=== PATIENT | female | born 1930 | race Caucasian/White ===

== ENCOUNTER 2017-09-12 16:15 | Inpatient (IN) | payer MEDICARE, OTHER ==
[2017-09-12 17:19] LABS: #Basophils 0.1 thou/uL (0.0-0.2); #Eosinphils 0.1 thou/uL (0.0-0.7); #Lymphocytes 2.4 thou/uL (1.20-3.40); #Neutrophils 4.9 thou/uL (1.40-6.50); %Basophils 0.7 % (0.0-1.0); %Lymphocytes 28.1 % (21.0-51.0); %Monocytes 11.5 % (0.0-10.0); Hematocrit 35.2 % (36.0-47.0); Mean Platelet Volume 7.4 fL (7.4-10.4); Red Blood Cell (RBC) Count 4.31 mill/uL (4.20-5.40); White Blood Cell (WBC) Count 8.4 thou/uL (4.8-10.8)
[2017-09-12 17:26] LABS: PTT 40.7 SEC (22.9-36.1)
[2017-09-12 17:28] LABS: Prothrombin Time 13.9 SEC (12.0-14.7)
[2017-09-12 17:37] LABS: ALT (SGPT) 14 U/L (8-55); AST (SGOT) 18 U/L (5-34); Alkaline Phosphatase 107 U/L (40-150); Anion Gap 13 mmol/L (10-20); BUN (Urea Nitrogen) 20 mg/dL (9.8-20.1); Bilirubin, Total 0.4 mg/dL (0.2-1.2); CK (CPK) 46 U/L (29-168); Calc. Creatinine Clearance 0 mL/min (70-130); Calcium 9.4 mg/dL (7.8-10.44); Carbon Dioxide 25 mmol/L (23-31); Chloride 103 mmol/L (98-107); Estimated GFR-MDRD 73; Globulin 3.7 g/dL (2.4-3.5); Lipase 18 U/L (8-78); Protein, Total 7.6 g/dL (6.0-8.3)
[2017-09-12 17:39] LABS: Troponin I 0.027 ng/mL (< 0.028)
--- NOTE | 2017-09-12 17:46 | RAD ---
PORTABLE CHEST: 09/12/17 HISTORY: Shortness of breath. COMPARISON: 03/19/13. Cardiomegaly. Mild vascular engorgement. Some interstitial prominence may represent mild interstitial edema. No confluent consolidation or alveolar process. Mild flattening of diaphragms. IMPRESSION: Cardiomegaly and evidence of mild vascular engorgement. POS: [facility]
[2017-09-12] MEDS ORDERED: Furosemide 40 MG/4 ML VIAL ONE (17:50)
[2017-09-12] MEDS ORDERED: Acetaminophen 325 MG TAB PO PRN (20:55)
[2017-09-12] MEDS ORDERED: Ondansetron HCl/PF 4 MG/2 ML Vial IVP PRN (20:55)
[2017-09-12] MEDS ORDERED: Ondansetron ODT 4 MG TAB SL PRN (20:55)
[2017-09-12 21:00] LABS: Troponin I 0.035 ng/mL (< 0.028)
[2017-09-12] MEDS ORDERED: Insulin Regular 300 UNITS/3 ML VIAL SC PRN (21:33)
[2017-09-12] MEDS ORDERED: Dextrose 50% Abboject 50 ML SYRINGE SLOW IVP PRN (21:33)
[2017-09-12] MEDS ORDERED: Dextrose 5% in Water 1,000 ML IV PRN (21:33)
[2017-09-12] MEDS ORDERED: HumaLOG 300 UNITS/3 ML VIAL SC PRN (21:33)
[2017-09-12] MEDS ORDERED: Atorvastatin Calcium 40 MG TAB PO SCH (22:00)
[2017-09-12] MEDS ORDERED: Famotidine 20 MG TAB PO SCH (22:00)
[2017-09-12] MEDS ORDERED: Furosemide 40 MG/4 ML VIAL SLOW IVP SCH (22:00)
[2017-09-12] MEDS: Atorvastatin Calcium 40 MG TAB PO SCH (22:28)
[2017-09-12] MEDS: Famotidine 20 MG TAB PO SCH (22:29)
[2017-09-12 22:43] VITALS: BMI 31.6
[2017-09-12 22:45] LABS: Magnesium 2.4 mg/dL (1.6-2.6); Phosphorus 2.8 mg/dL (2.3-4.7)
[2017-09-12 23:37] LABS: Troponin I 0.038 ng/mL (< 0.028)
--- NOTE | 2017-09-13 01:30 | HP ---
DATE OF ADMISSION: 09/12/2017 ATTENDING: Marifer Dominguez D.O. RESIDENT: Eliot Lozano D.O. Dr. Lozano's H&P reviewed and case discussed. Pertinent portions of the history and physical were repeated by myself. I agree with the assessment and plan with the following addendum: Ms. Finn is an 87-year-old female with a past medical history of paroxysmal atrial fibrillation, hypertension, diabetes, hyperlipidemia, depression, who was sent to the ER by home health because of worsening heart rate and blood pressure. On arrival, the patient noted that she had dyspnea and lower extremity edema, which is new. She had a BNP of 589, which is a new finding. Her troponins have been indeterminate at 0.035 and 0.038, otherwise electrolytes have been normal. Her creatinine is 0.75. She has a mild microcytic anemia. The patient was admitted with concern for new onset congestive heart failure. Her chest x-ray was consistent with cardiomegaly and pulmonary vascular congestion. EKG shows atrial fibrillation without evidence of ischemia. She has been given a dose of Lasix and is diuresing appropriately. We are monitoring I's and O's and fluid restricting her. An echo has been ordered to be read by Cardiology. Cardiology has been consulted given her new onset congestive heart failure as she may require cardiac catheterization. We will await their recommendations. She is currently on lisinopril and atenolol. We will change her atenolol to Coreg. She is rate controlled with a heart rate of 89, and has a CHADSVASC of 5; will discuss anticoagulation with PCP, patient, and family tomorrow. MYRON
[2017-09-13 03:52] LABS: Troponin I 0.035 ng/mL (< 0.028)
[2017-09-13 03:55] LABS: Hematocrit 35.7 % (36.0-47.0); Mean Platelet Volume 7.4 fL (7.4-10.4); Neutrophil 70 % (42-75); Red Blood Cell (RBC) Count 4.34 mill/uL (4.20-5.40); White Blood Cell (WBC) Count 9.6 thou/uL (4.8-10.8)
[2017-09-13 03:58] LABS: Calcium 9.4 mg/dL (7.8-10.44)
[2017-09-13 04:00] LABS: Carbon Dioxide 28 mmol/L (23-31)
[2017-09-13 04:02] LABS: Calc. Creatinine Clearance 69 mL/min (70-130); Estimated GFR-MDRD 76
[2017-09-13 04:03] LABS: BUN (Urea Nitrogen) 14 mg/dL (9.8-20.1)
[2017-09-13 05:13] LABS: Chloride 101 mmol/L (98-107)
[2017-09-13 05:16] LABS: Anion Gap 14 mmol/L (10-20)
[2017-09-13] MEDS: Levothyroxine Sodium 50 MCG TAB PO SCH (05:21)
[2017-09-13] MEDS: Furosemide 40 MG/4 ML VIAL SLOW IVP SCH ×2 (05:21→13:19)
--- NOTE | 2017-09-13 05:55 | HP-2 ---
DATE OF ADMISSION: 09/12/2017 CODE STATUS: DNR, discussed extensively with the patient and family present. The patient is aware a nd understands what this means and has discussed this with family prior to her admission. PRIMARY CARE PHYSICIAN: Dr. Sohail Fernandez. ATTENDING PHYSICIAN: Marifer Dominguez D.O. RESIDENT: Cuca Guillory D.O. HISTORIAN: Patient. CHIEF COMPLAINT: Increased shortness of breath. HISTORY OF PRESENT ILLNESS: This is a pleasant 87-year-old white female with past medical history of atrial fibrillation, rate controlled, presenting with worsening of shortness of breath over the past 2-3 months; however, this morning, her shortness of breath got progressively worse, which caused her to come to the ER. Now sleeping in the upright position in the bed and has noticed that she has mor e fatigue and dyspnea with exertion and she is unable to go to the grocery store or a walk from her h ouse to the car and is limiting her daily activities of living. Denies any chest pain, nausea, vomit ing, fever, chills, diaphoresis, abdominal pain, weight changes. She does note increased lower extre mity swelling and abdominal fullness. She was noted to be hypoxic in the emergency room and started on oxygen at that time and was noted to have elevation in her BNP in the 500s. Therefore, she was ad mitted for an acute exacerbation of CHF, new onset. In the emergency room, she received Lasix 40 mg IV push. PAST MEDICAL HISTORY: 1. Atrial fibrillation, rate controlled. 2. Hypothyroidism. 3. Chronic anxiety. 4. Chronic obstructive pulmonary disease. 5. Hyperlipidemia. 6. Hypertension. 7. Diabetes mellitus type 2. PAST SURGICAL HISTORY: 1. Appendectomy. 2. Hysterectomy. 3. Skin cancer removals. MEDICATIONS: 1. Potassium chloride ER 20 mEq p.o. b.i.d. 2. Atenolol 50 mg b.i.d. 3. Clonidine 0.2 mg p.o. b.i.d. 4. Aspirin 81 mg p.o. daily. 5. Escitalopram 10 mg p.o. daily. 6. Synthroid 50 mcg p.o. daily. 7. Amlodipine 10 mg p.o. daily. 8. Pravachol 20 mg p.o. daily. 9. Metformin extended release 750 mg p.o. daily. 10. Hydrochlorothiazide 25 mg p.o. at bedtime. 11. Lisinopril 20 mg p.o. q.a.m. ALLERGIES: No known drug allergies. FAMILY HISTORY: Father had brain cancer. SOCIAL HISTORY: She lives at [place] and is retired. She does have a history of tobacco abuse in the past; however, none currently. Denies any alcohol or drug use. She does have 8 children. REVIEW OF SYSTEMS: Positive for shortness of breath, exercise intolerance, palpitations, edema, paro xysmal nocturnal dyspnea, orthopnea, generalized weakness and chronic controlled anxiety as well as c hronic constipation. Otherwise, 12-point review of systems negative other than mentioned above. PHYSICAL EXAMINATION: VITAL SIGNS: Blood pressure 132/99, pulse 93, respirations 20, T-max 97.6, pulse ox 95% on 2 liters. Current weight is 78 kilograms estimated. GENERAL: Alert, oriented x4, no acute distress. She is obese, appropriately interactive. EYES: Pupils equal and reactive to light. Extraocular muscles intact. Conjunctivae within normal l imits. ENT: Tympanic membranes pearly gzuman without bulging or erythema. Nasal mucosa within normal limits. Oropharynx within normal limits. NECK: Supple, no lymphadenopathy, no bruit. CARDIOVASCULAR: Irregularly irregular. Radial pulses +2, pedal pulses +2. RESPIRATIONS: Within normal limits. No retractions. Clear to auscultation bilaterally. SKIN: Warm and dry, no cyanosis, no lesions. ABDOMEN: Soft, nontender to palpation. No mass or distention. EXTREMITIES: No cyanosis, +2 pitting edema bilaterally in lower extremities. MUSCULOSKELETAL: Structure within normal limits. Tone within normal limits. NEUROLOGIC: No focal deficits. Cranial nerves II through XII intact. GCS of 15. PSYCHIATRIC: Appropriate. LABORATORY DATA: CBC: WBC 8.4, hemoglobin 11.5, hematocrit 35.2, platelets 304. MCV 81.7. CMP: S odium 137, potassium 3.5, chloride 103, bicarbonate 25, BUN 20, creatinine 0.75, glucose 89, GFR 73, calcium 9.4, total bilirubin 0.4, total protein 7.6, albumin 3.4, AST 18, ALT 14, alkaline phosphatas e 107. PT 13.9, PTT 40.7, INR 1.1. Lipase 18. BNP 589.1. CK 46, CK-MB 1.6, troponin I 0.027, trended up to 0.038. EKG: Atrial fibrillation, whic h is rate controlled. Chest x-ray, cardiomegaly with vascular engorgement. ASSESSMENT AND PLAN: This is an 87-year-old female with past medical history of atrial fibrillation, controlled with beta alon, presents with increased shortness of breath. 1. Acute and new onset congestive heart failure. We will order an echo. Consult Cardiology in the morning. Cardiac enzymes x3, Lasix, potassium. Admit to telemetry. Monitor ins and outs and mainta in fluid restriction 1800 mL per hour. We will check a magnesium and phosphorous 2. Atrial fibrillation, rate controlled. We will continue her home medications, aspirin 81 mg, eleonora nopril and hydrochlorothiazide; however, we will change from atenolol to Coreg and continue to titrat e as appropriate. 3. Hypothyroidism. Continue home medications, check a TSH. 4. Chronic anxiety. We will continue home medications. 5. Chronic obstructive pulmonary disease. DuoNeb. 6. Hyperlipidemia. We will change from pravastatin to Atorvastatin 80 mg. 7. Hypertension. We will continue home medications. 8. Diabetes mellitus type 2, home metformin and check hemoglobin A1c, Accu-Chek and hypoglycemic pro tocol. 9. Deep venous thrombosis prophylaxis. Lovenox. 10. Gastrointestinal prophylaxis. Protonix. 11. Code status is DNR. 12. Hypoxia, oxygen p.r.n. and DuoNeb p.r.n. History and physical exam as well as management was discussed with Dr. Dominguez who agrees with the ab e assessment and plan.
[2017-09-13] MEDS ORDERED: Potassium Chloride 20 MEQ TAB PO SCH (08:00)
[2017-09-13] MEDS ORDERED: Carvedilol 6.25 MG TAB PO SCH (08:00)
[2017-09-13] MEDS: Lisinopril 20 MG TAB PO SCH (08:52)
[2017-09-13] MEDS: Enoxaparin Sodium 40 MG/0.4 ML SYRINGE SC SCH (08:52)
[2017-09-13] MEDS: Escitalopram Oxalate 10 mg Tablet PO SCH (08:52)
[2017-09-13] MEDS ORDERED: Atenolol 50 MG TAB PO SCH (09:00)
[2017-09-13] MEDS ORDERED: Enoxaparin Sodium 40 MG/0.4 ML SYRINGE SC SCH (09:00)
--- NOTE | 2017-09-13 13:42 | PDOC.FM ---
- Subjective Subjective: Pt endorses worsening shortness of breath over the past several months as well as bilateral leg swelling. States she is breathing fine this morning on 2L O2. No other complaints this morning. - Objective Vital Signs & Weight: Vital Signs (12 hours) Temp Pulse Resp BP BP BP BP 09/13/17 13:13 97.4 F L 95 17 144/91 H 09/13/17 08:52 134/88 09/13/17 08:00 98.1 F 97 18 134/88 09/13/17 05:30 156/82 H 142/74 H 153/98 H 09/13/17 04:00 98.1 F 96 18 155/75 H Pulse Ox 09/13/17 13:13 97 09/13/17 08:52 09/13/17 08:00 95 09/13/17 05:30 09/13/17 04:00 94 L Weight Weight 78.613 kg I&O: 09/12/17 09/13/17 09/14/17 06:59 06:59 06:59 Intake Total 120 Output Total 3550 Balance -3430 Result Diagrams: 09/13/17 03:11 09/13/17 03:11 <TracePaty - Last Filed: 09/13/17 13:40> - Objective Vital Signs & Weight: Vital Signs (12 hours) Temp Pulse Pulse Pulse Resp BP BP 09/13/17 16:58 134/88 09/13/17 15:53 98.0 F 112 H 22 H 09/13/17 13:13 97.4 F L 95 17 09/13/17 10:51 117 H 95 131/85 09/13/17 08:52 134/88 09/13/17 08:00 98.1 F 97 18 BP BP Pulse Ox Pulse Ox Pulse Ox 09/13/17 16:58 09/13/17 15:53 122/94 H 96 09/13/17 13:13 144/91 H 97 09/13/17 10:51 142/97 H 96 90 L 09/13/17 08:52 09/13/17 08:00 134/88 95 Weight Weight 78.613 kg I&O: 09/12/17 09/13/17 09/14/17 06:59 06:59 06:59 Intake Total 120 920 Output Total 3550 2450 Balance -3430 -1530 Result Diagrams: 09/13/17 03:11 09/13/17 03:11 <RadhaSanjuanita - Last Filed: 09/13/17 19:35> Phys Exam - Physical Examination HEENT: PERRLA, moist MMs Respiratory: no wheezing, no rales, clear to auscultation bilateral irregularly irregular Gastrointestinal: soft, non-tender, no distention Musculoskeletal: edema present 1+ bilateral lower extremities Neurological: non-focal, normal sensation Psychiatric: normal affect, A&O x 3 <Paty Woodward - Last Filed: 09/13/17 13:40> Dx/Plan (1) CHF exacerbation Code(s): I50.9 - HEART FAILURE, UNSPECIFIED Status: Acute (2) Atrial fibrillation Code(s): I48.91 - UNSPECIFIED ATRIAL FIBRILLATION Status: Acute (3) Hypothyroidism Code(s): E03.9 - HYPOTHYROIDISM, UNSPECIFIED Status: Acute (4) Anxiety Code(s): F41.9 - ANXIETY DISORDER, UNSPECIFIED Status: Acute (5) COPD (chronic obstructive pulmonary disease) Status: Acute (6) HLD (hyperlipidemia) Code(s): E78.5 - HYPERLIPIDEMIA, UNSPECIFIED Status: Acute (7) HTN (hypertension) Code(s): I10 - ESSENTIAL (PRIMARY) HYPERTENSION Status: Acute (8) diabetes mellitus type 2 Status: Acute - Plan Plan: 87 yo f with pmhx of htn, hld, and atrial fibrillation presents with 2-3 mo hx of worsening shortness of breath, admitted for new onset CHF exacerbation. 1.) CHF exacerbation, acute, new onset- Cards consulted, will followup on recs Coreg 6.5 BID, Lisinopril 10mg, Lasix 40mg IV BID O2 prn sats >85% 2.) Atrial Fibrillation-on Coreg Has bled score 1.8% and Chadsvasc 8.5% Recommend Xarelto 15mg BID; will [place] pt of risk and benefits and discuss with cardiology 3.)HLD- will restart home meds 4.)HTN- will restart home meds 5.)Hypothyroidism- Will restart home meds 6.)COPD- will restart home meds 7.)Anxiety- will restart home meds <Paty Woodward - Last Filed: 09/13/17 13:40> Attending Addendum - Attending Addendum I personally evaluated the patient and discussed the management with Dr. Guzman. I agree with the History, Examination, Assessment and Plan documented above with any addition or exceptions noted below. Patient with new onset CHF. Echo is pending. Patient is diuresing with lasix. Cardiology will be consulted. Patient will likely need to be started on xarelto or eliquis for anticoagulation due to atrial fibrillation. <Sanjuanita Garcia - Last Filed: 09/13/17 19:35>
--- NOTE | 2017-09-13 16:20 | CON ---
REASON FOR CONSULTATION: Shortness of breath and atrial fibrillation. PRIMARY PROVIDER: Dr. Sohail Fernandez. HISTORY OF PRESENT ILLNESS: Ms. Finn is an 87-year-old woman who has not been seen or evaluated by Cardiology in the past. She has a previous history of atrial fibrillation. She recently present ed with shortness of breath, fatigue, weakness, and lower extremity edema. She states her shortness of breath has markedly improved in addition to lower extremity edema. She states she has not been se en or evaluated by Cardiology in the past. No chest pain or pressure noted. No other associated jake liorating or exacerbating factors present. PAST MEDICAL HISTORY: Atrial fibrillation, hypothyroidism, COPD, hyperlipidemia, hypertension, and d iabetes mellitus. CURRENT MEDICATIONS: Mirtazapine, atenolol, clonidine, aspirin, Synthroid, amlodipine, Pravachol, me tformin, and lisinopril. ALLERGIES: None. SOCIAL HISTORY: No current tobacco or alcohol use. REVIEW OF SYSTEMS: As above, otherwise 11-point system negative. PHYSICAL EXAMINATION: GENERAL: Patient is a pleasant female who is in no acute distress. The patient appears her stated a ge. VITAL SIGNS: Blood pressure 144/91, pulse 95, temperature 97.4. NEUROLOGIC: The patient is alert and oriented times 3 with no focal neurologic deficits. HEENT: Sclerae without icterus. Mouth has moist mucous membranes with normal pallor. NECK: No JVD. Carotid upstroke brisk. No bruits bilaterally. LUNGS: Clear to auscultation with unlabored respirations. BACK: No scoliosis or kyphosis. CARDIAC: Irregularly irregular. No significant rubs, murmurs, thrills, or gallops noted throughout the precordium. PMI is not displa rick. There is no parasternal heave. ABDOMEN: Soft, nontender, nondistended. No peritoneal signs present. No hepatosplenomegaly. No abnormal striae. EXTREMITIES: 2+ femoral and 2+ dorsalis pedis pulses. No cyanosis, clubbing, or edema. SKIN: No gross abnormalities. PERTINENT LABORATORY DATA: Hemoglobin 11.4, creatinine 0.73, platelet count 293. IMPRESSION: 1. Atrial fibrillation. 2. Shortness of breath. 3. Lower extremity edema. RECOMMENDATIONS: From a CV standpoint, Ms. Finn appears stable. Her current heart rate is 95. From a rate control standpoint, she is on carvedilol 6.25 one p.o. b.i.d. She is not on IV rate cont rol. May consider adding digoxin versus increasing carvedilol for better rate control if needed. Wi ll also discuss novel oral anticoagulation agents with Quinton Aakash.
[2017-09-13] MEDS: Carvedilol 6.25 MG TAB PO SCH (16:58)
[2017-09-13] MEDS: Hydrochlorothiazide 25 MG TAB PO SCH (20:48)
[2017-09-13] MEDS: Atorvastatin Calcium 40 MG TAB PO SCH (20:48)
[2017-09-13] MEDS: Famotidine 20 MG TAB PO SCH (20:48)
[2017-09-13] MEDS: Acetaminophen 325 MG TAB PO PRN (20:49)
[2017-09-13] MEDS: Milk Of Magnesia 30 ML UDCUP PO PRN (20:49)
[2017-09-14 05:40] LABS: #Eosinphils 0.1 thou/uL (0.0-0.7); #Lymphocytes 1.9 thou/uL (1.20-3.40); #Monocytes 1.1 thou/uL (0.11-0.59); #Neutrophils 5.3 thou/uL (1.40-6.50); %Basophils 0.5 % (0.0-1.0); %Eosinophils 1.1 % (0.0-10.0); Hematocrit 42.3 % (36.0-47.0); Mean Platelet Volume 7.8 fL (7.4-10.4); Red Blood Cell (RBC) Count 5.12 mill/uL (4.20-5.40); White Blood Cell (WBC) Count 8.4 thou/uL (4.8-10.8)
[2017-09-14] MEDS: Furosemide 40 MG/4 ML VIAL SLOW IVP SCH (05:40)
[2017-09-14] MEDS: Levothyroxine Sodium 50 MCG TAB PO SCH (05:40)
[2017-09-14 06:13] LABS: Anion Gap 13 mmol/L (10-20); BUN (Urea Nitrogen) 18 mg/dL (9.8-20.1); Calc. Creatinine Clearance 41 mL/min (70-130); Calcium 9.9 mg/dL (7.8-10.44); Carbon Dioxide 32 mmol/L (23-31); Chloride 99 mmol/L (98-107); Estimated GFR-MDRD 47
[2017-09-14] MEDS: Milk Of Magnesia 30 ML UDCUP PO PRN (06:45)
[2017-09-14] MEDS ORDERED: Bisacodyl 10 MG SUPP PR PRN (06:57)
[2017-09-14] MEDS: Sodium Chloride 0.9% 500 ML IV SCH ×7 (07:48→13:25)
[2017-09-14] MEDS: Escitalopram Oxalate 10 mg Tablet PO SCH (07:50)
[2017-09-14] MEDS: Enoxaparin Sodium 40 MG/0.4 ML SYRINGE SC SCH (07:50)
[2017-09-14] MEDS: Docusate 100 MG CAP PO SCH ×2 (07:51→20:44)
[2017-09-14] MEDS: Carvedilol 6.25 MG TAB PO SCH (07:51)
[2017-09-14] MEDS: Metamucil PACK PO SCH (08:27)
--- NOTE | 2017-09-14 11:06 | PDOC.FM ---
- Subjective Subjective: Pt feeling well this morning aside from constipation. Denies any palpitations, shortness of breath, chest pain or other symptoms. Able to ambulate to restroom without SOB. No longer requiring O2. - Objective MAR Reviewed: Yes Vital Signs & Weight: Vital Signs (12 hours) Temp Pulse Resp BP BP Pulse Ox 09/14/17 07:51 124/68 09/14/17 07:45 97.9 F 103 H 18 91 L 09/14/17 07:44 97.9 F 103 H 18 124/68 91 L 09/14/17 07:35 99 09/14/17 04:00 98.0 F 110 H 20 124/81 96 09/14/17 00:00 18 Weight Weight 71.486 kg I&O: 09/13/17 09/14/17 09/15/17 06:59 06:59 06:59 Intake Total 120 1054 Output Total 0505 2700 Balance -8723 -0506 Result Diagrams: 09/14/17 05:17 09/14/17 05:17 EKG Reviewed by me: Yes (rate controlled Afib on tele monitor) <Elissa Null - Last Filed: 09/14/17 11:18> - Objective Vital Signs & Weight: Vital Signs (12 hours) Temp Pulse Resp BP BP BP BP 09/14/17 11:32 95/70 88/51 L 137/79 09/14/17 07:51 124/68 09/14/17 07:45 97.9 F 103 H 18 09/14/17 07:44 97.9 F 103 H 18 124/68 09/14/17 07:35 09/14/17 04:00 98.0 F 110 H 20 124/81 09/14/17 00:00 18 Pulse Ox 09/14/17 11:32 09/14/17 07:51 09/14/17 07:45 91 L 09/14/17 07:44 91 L 09/14/17 07:35 99 09/14/17 04:00 96 09/14/17 00:00 Weight Weight 71.486 kg I&O: 09/13/17 09/14/17 09/15/17 06:59 06:59 06:59 Intake Total 120 1054 Output Total 3550 2700 Balance -0963 -8971 Result Diagrams: 09/14/17 05:17 09/14/17 05:17 <Sanjuanita Garcia - Last Filed: 09/14/17 11:41> Phys Exam - Physical Examination Constitutional: NAD HEENT: oral pharynx no lesions Neck: no JVD, supple Respiratory: no wheezing, clear to auscultation bilateral Cardiovascular: no significant murmur, irregular Gastrointestinal: soft, non-tender, no distention Musculoskeletal: no edema Neurological: non-focal Psychiatric: normal affect, A&O x 3 Skin: no rash, normal turgor <Elissa Null - Last Filed: 09/14/17 11:18> Dx/Plan (1) Diastolic CHF, acute Code(s): I50.31 - ACUTE DIASTOLIC (CONGESTIVE) HEART FAILURE Status: Acute (2) Atrial fibrillation Code(s): I48.91 - UNSPECIFIED ATRIAL FIBRILLATION Status: Acute QualifierTitle: Atrial fibrillation type: persistent Qualified Code(s): I48.1 - Persistent atrial fibrillation (3) COPD (chronic obstructive pulmonary disease) Status: Chronic QualifierTitle: COPD type: unspecified COPD Qualified Code(s): J44.9 - Chronic obstructive pulmonary disease, unspecified (4) HLD (hyperlipidemia) Code(s): E78.5 - HYPERLIPIDEMIA, UNSPECIFIED Status: Chronic QualifierTitle: Hyperlipidemia type: unspecified Qualified Code(s): E78.5 - Hyperlipidemia, unspecified (5) HTN (hypertension) Code(s): I10 - ESSENTIAL (PRIMARY) HYPERTENSION Status: Chronic QualifierTitle: Hypertension type: essential hypertension Qualified Code( s): I10 - Essential (primary) hypertension (6) Hypothyroidism Code(s): E03.9 - HYPOTHYROIDISM, UNSPECIFIED Status: Chronic (7) diabetes mellitus type 2 Status: Chronic (8) Anxiety Code(s): F41.9 - ANXIETY DISORDER, UNSPECIFIED Status: Chronic (9) Constipation Code(s): K59.00 - CONSTIPATION, UNSPECIFIED Status: Acute QualifierTitle: Constipation type: unspecified constipation type Qualified Code(s): K59.00 - Constipation, unspecified - Plan Plan: 87 yo f with pmhx of htn, hld who presents with 2-3 mo hx of shortness of breath with ambulation, found to be in Afib & admitted for new onset CHF-- 1) Acute diastolic CHF (new onset)- - echo showed preserved EF% but unable to assess diastolic dysfxn due to Afib - cards consulted and agree with plan - excessive diuresis. hold am nephrotoxins and decrease to po am dose. recheck renal fxn after decrease in diuretics. - no longer on supplemental o2-- check O2 with ambulation to assure no needed oxygen 2) Atrial Fibrillation, persistent & rate- controlled- - HAS BLED = 2, [id number] = 6. discussed need for NOAC and pt & family agrees to treatment - start Xarelto 20mg QD 3)HLD- home meds 4)HTN- home meds 5.)Hypothyroidism- home meds 6) Constipation- bowel regimen started <Paty Woodward - Last Filed: 09/13/17 13:4 <Elissa Null - Last Filed: 09/14/17 11:18> Attending Addendum - Attending Addendum I personally evaluated the patient and discussed the management with Dr. Null. I agree with the History, Examination, Assessment and Plan documented above with any addition or exceptions noted below. The patient's breathing and edema are improved. Pt with YAO this morning. Small amount of IV fluids given this am. Will recheck creatinine this afternoon. She may be able to discharge if labs are stable. Appreciate cardiology recs. <Sanjuanita Garcia - Last Filed: 09/14/17 11:41>
[2017-09-14] MEDS ORDERED: Polyethylene Glycol 3350 17 GM Packet PO SCH (11:15)
[2017-09-14] MEDS ORDERED: Carvedilol 6.25 MG TAB PO SCH (12:30)
[2017-09-14] MEDS ORDERED: Metoprolol Tartrate 25 MG TAB PO SCH (12:45)
--- NOTE | 2017-09-14 13:44 | PRG ---
DATE OF SERVICE: 09/14/2017 SUBJECTIVE: Mr. Finn is doing well. Her heart rate continues to be mildly elevated in the 100s. Blood pressure appears stable. OBJECTIVE: VITAL SIGNS: Blood pressure 124/68, pulse 103, temperature 97.9. LUNGS: Clear to auscultation. HEART: Irregularly irregular. ABDOMEN: Soft, nontender, nondistended. EXTREMITIES: No edema. IMPRESSION: Atrial fibrillation. RECOMMENDATIONS: Her Coreg has been discontinued and placed metoprolol. There should be less decreas e in blood pressure, so I would agree. I have also discussed risks and benefits of anticoagulation t herapy. They have decided to proceed with anticoagulation treatment. We will add Xarelto versus Eliqu is. Her LVEF on recent echo appeared normal.
[2017-09-14 16:25] LABS: Anion Gap 14 mmol/L (10-20); BUN (Urea Nitrogen) 21 mg/dL (9.8-20.1); Calc. Creatinine Clearance 33 mL/min (70-130); Calcium 9.7 mg/dL (7.8-10.44); Carbon Dioxide 33 mmol/L (23-31); Chloride 97 mmol/L (98-107); Estimated GFR-MDRD 36
[2017-09-14] MEDS ORDERED: Carvedilol 25 MG TAB PO SCH (17:00)
[2017-09-14] MEDS: Rivaroxaban 10 MG TAB PO SCH (17:08)
[2017-09-14] MEDS ORDERED: Sodium Chloride 0.9% 500 ML IV SCH (17:30)
[2017-09-14] MEDS: Acetaminophen 325 MG TAB PO PRN (20:43)
[2017-09-14] MEDS: Hydrochlorothiazide 25 MG TAB PO SCH (20:43)
[2017-09-14] MEDS: Famotidine 20 MG TAB PO SCH (20:44)
[2017-09-14] MEDS: Atorvastatin Calcium 40 MG TAB PO SCH (20:44)
[2017-09-14] MEDS ORDERED: Metoprolol Tartrate 50 MG TAB PO SCH (21:00)
[2017-09-15] MEDS: Sodium Chloride 0.9% 500 ML IV SCH ×2 (01:35→01:36)
[2017-09-15 05:27] LABS: #Eosinphils 0.1 thou/uL (0.0-0.7); #Lymphocytes 2.4 thou/uL (1.20-3.40); #Monocytes 1.3 thou/uL (0.11-0.59); #Neutrophils 6.3 thou/uL (1.40-6.50); %Basophils 0.4 % (0.0-1.0); %Eosinophils 0.9 % (0.0-10.0); %Lymphocytes 23.5 % (21.0-51.0); %Monocytes 12.4 % (0.0-10.0); Hematocrit 39.7 % (36.0-47.0); Mean Platelet Volume 7.8 fL (7.4-10.4)
[2017-09-15] MEDS: Levothyroxine Sodium 50 MCG TAB PO SCH (05:38)
[2017-09-15 05:48] LABS: Anion Gap 13 mmol/L (10-20); BUN (Urea Nitrogen) 20 mg/dL (9.8-20.1); Calc. Creatinine Clearance 51 mL/min (70-130); Calcium 9.5 mg/dL (7.8-10.44); Carbon Dioxide 26 mmol/L (23-31); Chloride 100 mmol/L (98-107); Estimated GFR-MDRD 60
[2017-09-15] MEDS ORDERED: Furosemide 40 MG TAB PO SCH (07:30)
[2017-09-15] MEDS ORDERED: Furosemide 20 MG TAB PO SCH (07:45)
[2017-09-15] MEDS: Polyethylene Glycol 3350 17 GM Packet PO SCH (08:53)
[2017-09-15] MEDS: Lisinopril 20 MG TAB PO SCH (08:53)
[2017-09-15] MEDS: Metamucil PACK PO SCH (08:53)
[2017-09-15] MEDS: Docusate 100 MG CAP PO SCH ×2 (08:53→21:43)
[2017-09-15] MEDS: Escitalopram Oxalate 10 mg Tablet PO SCH (08:53)
[2017-09-15] MEDS: Metoprolol Tartrate 50 MG TAB PO SCH ×2 (08:54→21:41)
[2017-09-15] MEDS ORDERED: Digoxin 0.25 MG TAB PO SCH (10:30)
[2017-09-15 11:47] LABS: Bilirubin Negative (Negative); Blood, Urine Large (Negative); Glucose, Urine (Dipstick) Negative (Negative); Ketone, Urine Negative (Negative); Nitrite Negative (Negative); Protein, Urine (Dipstick) Negative (Neg-Trace); Urobilinogen 0.2 mg/dL (0.2-1.0)
[2017-09-15 11:49] LABS: Bacteria/HPF Rare-Few HPF (None Seen); Hyaline Casts/LPF 0-3 HYALINE CAST LPF (0-3 Hyaline); RBC/HPF GREATER THAN 50-TNTC HPF (0-3); Squamous Epithelial 0-3 HPF (0-3); WBC/HPF 0-3 HPF (0-3)
[2017-09-15] MEDS: Digoxin 0.25 MG TAB PO SCH ×2 (17:23→22:14)
[2017-09-15] MEDS: Rivaroxaban 10 MG TAB PO SCH (17:23)
--- NOTE | 2017-09-15 17:57 | PDOC.FM ---
- Subjective Subjective: pt resting comfortably in room without any concerns. does not feel palpitations or chest pain. family at bedside. - Objective MAR Reviewed: Yes Vital Signs & Weight: Vital Signs (12 hours) Temp Pulse Pulse Pulse Resp BP BP 09/15/17 17:23 96 09/15/17 15:05 98.4 F 96 20 09/15/17 11:24 98 09/15/17 11:20 98.1 F 108 H 17 09/15/17 10:10 74 99 134/91 H 09/15/17 08:53 140/88 09/15/17 08:16 100 142/75 H 09/15/17 07:47 09/15/17 07:10 97.8 F 113 H 20 09/15/17 07:07 97.8 F 113 H 20 BP BP BP Pulse Ox Pulse Ox Pulse Ox 09/15/17 17:23 09/15/17 15:05 132/89 98 09/15/17 11:24 09/15/17 11:20 119/56 L 99 09/15/17 10:10 157/71 H 98 96 09/15/17 08:53 09/15/17 08:16 98 09/15/17 07:47 85 L 09/15/17 07:10 92 L 09/15/17 07:07 140/88 92 L Weight Weight 72.983 kg I&O: 09/14/17 09/15/17 09/16/17 06:59 06:59 06:59 Intake Total 1054 3515 Output Total 2700 1250 Balance -1646 2265 Result Diagrams: 09/15/17 04:39 09/15/17 04:39 EKG Reviewed by me: Yes (tele strip- afib in 115-125) <Elissa Null - Last Filed: 09/15/17 17:59> - Objective Vital Signs & Weight: Vital Signs (12 hours) Temp Pulse Resp BP Pulse Ox 09/16/17 15:45 97.7 F 86 18 138/79 92 L 09/16/17 11:39 98 F 70 16 139/67 98 09/16/17 08:27 98 09/16/17 08:20 98.7 F 98 18 125/68 96 Weight Weight 72.575 kg I&O: 09/15/17 09/16/17 09/17/17 06:59 06:59 06:59 Intake Total 3515 1200 Output Total 1250 1050 Balance 2265 150 Result Diagrams: 09/15/17 04:39 09/15/17 04:39 <Sanjuanita Garcia - Last Filed: 09/16/17 17:23> Phys Exam - Physical Examination Constitutional: NAD HEENT: PERRLA, moist MMs, oral pharynx no lesions Neck: no JVD, supple Respiratory: no wheezing, clear to auscultation bilateral Cardiovascular: irregular irregularly irregular, tachycardic Gastrointestinal: soft, non-tender, no distention Musculoskeletal: no edema Neurological: non-focal Psychiatric: normal affect, A&O x 3 Skin: no rash, normal turgor <Elissa Null - Last Filed: 09/15/17 17:59> Dx/Plan (1) Atrial fibrillation Code(s): I48.91 - UNSPECIFIED ATRIAL FIBRILLATION Status: Acute QualifierTitle: Atrial fibrillation type: persistent Qualified Code(s): I48.1 - Persistent atrial fibrillation (2) Acute kidney injury Code(s): N17.9 - ACUTE KIDNEY FAILURE, UNSPECIFIED Status: Acute (3) Diastolic CHF, acute Code(s): I50.31 - ACUTE DIASTOLIC (CONGESTIVE) HEART FAILURE Status: Acute (4) COPD (chronic obstructive pulmonary disease) Status: Chronic QualifierTitle: COPD type: unspecified COPD Qualified Code(s): J44.9 - Chronic obstructive pulmonary disease, unspecified (5) HLD (hyperlipidemia) Code(s): E78.5 - HYPERLIPIDEMIA, UNSPECIFIED Status: Chronic QualifierTitle: Hyperlipidemia type: unspecified Qualified Code(s): E78.5 - Hyperlipidemia, unspecified (6) HTN (hypertension) Code(s): I10 - ESSENTIAL (PRIMARY) HYPERTENSION Status: Chronic QualifierTitle: Hypertension type: essential hypertension Qualified Code( s): I10 - Essential (primary) hypertension (7) Hypothyroidism Code(s): E03.9 - HYPOTHYROIDISM, UNSPECIFIED Status: Chronic (8) diabetes mellitus type 2 Status: Chronic (9) Anxiety Code(s): F41.9 - ANXIETY DISORDER, UNSPECIFIED Status: Chronic (10) Constipation Code(s): K59.00 - CONSTIPATION, UNSPECIFIED Status: Resolved QualifierTitle: Constipation type: unspecified constipation type Qualified Code(s): K59.00 - Constipation, unspecified - Plan Plan: 87 yo f with pmhx of here with 2-3 mo hx of DUMONT, found to be in Afib & admitted for new onset Afib and presumed diastolic CHF-- 1) Atrial Fibrillation, now in RVR- rates 115-130 over night. - HAS BLED = 2, [id number] = 6. Discussed need for NOAC and pt & family agrees to treatment, started Xarelto 20mg QD - have been titrating up metoprolol with poor rate control, will load w/ digoxin & dose daily-- appreciate cards recs. if fails rate control with dosing , will need to transition to a rate controller IV gtt. 2) Acute diastolic CHF (new onset)- - echo showed preserved EF% but unable to assess diastolic dysfxn due to Afib - likely etiology of new need for O2-- will fill out paperwork to be able to go home on O2 3) YAO- - likely in setting of over-diuresis, improved today. will restart lasix in the am. 3)HLD- home meds 4)HTN- home meds 5.)Hypothyroidism- home meds Dispo- improve rate control and maximize medical therapy. await cards recs. <Elissa Null - Last Filed: 09/15/17 17:59> Attending Addendum - Attending Addendum I personally evaluated the patient and discussed the management with Dr. Null on 09/15/17. I agree with the History, Examination, Assessment and Plan documented above with any addition or exceptions noted below. The patient went into a fib with RVR. She is not being rate controlled with beta blockers. Will add digoxin. <Sanjuanita Garcia - Last Filed: 09/16/17 17:23>
[2017-09-15] MEDS: Hydrochlorothiazide 25 MG TAB PO SCH (21:42)
[2017-09-15] MEDS: Atorvastatin Calcium 40 MG TAB PO SCH (21:43)
[2017-09-15] MEDS: Famotidine 20 MG TAB PO SCH (21:43)
[2017-09-15] MEDS: Acetaminophen 325 MG TAB PO PRN (21:44)
[2017-09-16] MEDS: Levothyroxine Sodium 50 MCG TAB PO SCH (06:31)
[2017-09-16] MEDS ORDERED: Furosemide 40 MG TAB PO SCH (07:30)
[2017-09-16] MEDS ORDERED: Furosemide 20 MG TAB PO SCH (07:30)
--- NOTE | 2017-09-16 07:49 | PDOC.FM ---
- Subjective Subjective: Ms. Finn is feeling well this morning and has no current complaints. She is still on 2L NC with sats in the mid 90's. - Objective MAR Reviewed: Yes Vital Signs & Weight: Vital Signs (12 hours) Temp Pulse Resp BP Pulse Ox 09/16/17 03:24 98.0 F 109 H 18 132/88 09/16/17 00:52 95 09/15/17 22:14 90 09/15/17 19:48 97.7 F 107 H 16 95 Weight Weight 72.575 kg I&O: 09/15/17 09/16/17 09/17/17 06:59 06:59 06:59 Intake Total 3515 1200 Output Total 1250 1050 Balance 2265 150 Result Diagrams: 09/15/17 04:39 09/15/17 04:39 <Anirudh Reid - Last Filed: 09/16/17 07:37> - Objective Vital Signs & Weight: Vital Signs (12 hours) Temp Pulse Resp BP Pulse Ox 09/16/17 15:45 97.7 F 86 18 138/79 92 L 09/16/17 11:39 98 F 70 16 139/67 98 09/16/17 08:27 98 09/16/17 08:20 98.7 F 98 18 125/68 96 Weight Weight 72.575 kg I&O: 09/15/17 09/16/17 09/17/17 06:59 06:59 06:59 Intake Total 3515 1200 Output Total 1250 1050 Balance 2265 150 Result Diagrams: 09/15/17 04:39 09/15/17 04:39 <Sanjuanita Garcia - Last Filed: 09/16/17 17:27> Phys Exam - Physical Examination Constitutional: NAD Respiratory: clear to auscultation bilateral irregularly irregular rhythm Musculoskeletal: no edema Neurological: non-focal, moves all 4 limbs Psychiatric: normal affect, A&O x 3 <Anirudh Reid - Last Filed: 09/16/17 07:37> Dx/Plan (1) Diastolic CHF, acute Code(s): I50.31 - ACUTE DIASTOLIC (CONGESTIVE) HEART FAILURE Status: Acute Plan: Echo showed preserved EF but unable to assess diastolic function due to afib; however, presumed etiology for presenting symptoms and new oxygen requirement. Will need formal O2 walk test today and CM assistance for home oxygen if pt qualifies. Fluid status now euvolemic after substantial diuresis. (2) Atrial fibrillation Code(s): I48.91 - UNSPECIFIED ATRIAL FIBRILLATION Status: Acute QualifierTitle: Atrial fibrillation type: persistent Qualified Code(s): I48.1 - Persistent atrial fibrillation Plan: HR improved from prior, in the low 100's overnight. HASBLED 2, [id number] 6. Cardiology consulted, appreciate recs. Does not appear that EP will be consulted. Pt to go home on NOAC - Xarelto started this admission. Continue metoprolol and digoxin with intention of improved rate control prior to discharge. (3) Acute kidney injury Code(s): N17.9 - ACUTE KIDNEY FAILURE, UNSPECIFIED Status: Resolved Plan: Likely 2/2 aggressive diuresis with lasix. Improved yesterday. No new labs today. Will need r/p BMP tomorrow vs. outpt. (4) HLD (hyperlipidemia) Code(s): E78.5 - HYPERLIPIDEMIA, UNSPECIFIED Status: Chronic QualifierTitle: Hyperlipidemia type: unspecified Qualified Code(s): E78.5 - Hyperlipidemia, unspecified Plan: continue home statin (5) HTN (hypertension) Code(s): I10 - ESSENTIAL (PRIMARY) HYPERTENSION Status: Chronic QualifierTitle: Hypertension type: essential hypertension Qualified Code( s): I10 - Essential (primary) hypertension Plan: continue lisinopril, metoprolol, and HCTZ. PO lasix. Well controlled. (6) Hypothyroidism Code(s): E03.9 - HYPOTHYROIDISM, UNSPECIFIED Status: Chronic Plan: Continue synthroid. (7) diabetes mellitus type 2 Status: Chronic Plan: Continue metformin. Accuchecks are well controlled. (8) Anxiety Code(s): F41.9 - ANXIETY DISORDER, UNSPECIFIED Status: Chronic (9) COPD (chronic obstructive pulmonary disease) Status: Chronic QualifierTitle: COPD type: unspecified COPD Qualified Code(s): J44.9 - Chronic obstructive pulmonary disease, unspecified Plan: No current evidence of exacerbation. Initial CXR c/w acute respiratory failure from CHF rather than COPD. - Plan Plan: Dispo: Home today v. tomorrow pending home O2 and improved heart rate control. <Anirudh Reid - Last Filed: 09/16/17 07:37> Attending Addendum - Attending Addendum I personally evaluated the patient and discussed the management with Dr. Ried. I agree with the History, Examination, Assessment and Plan documented above with any addition or exceptions noted below. The patient's heart rate is improved today. Will try walking to trial to evaluate need for O2. <Sanjuanita Garcia - Last Filed: 09/16/17 17:27>
[2017-09-16] MEDS: Escitalopram Oxalate 10 mg Tablet PO SCH (08:27)
[2017-09-16] MEDS: Polyethylene Glycol 3350 17 GM Packet PO SCH (08:27)
[2017-09-16] MEDS: Metamucil PACK PO SCH (08:27)
[2017-09-16] MEDS: Docusate 100 MG CAP PO SCH (08:27)
[2017-09-16] MEDS: Lisinopril 20 MG TAB PO SCH (08:28)
[2017-09-16] MEDS: Metoprolol Tartrate 50 MG TAB PO SCH (08:28)
[2017-09-16] MEDS ORDERED: Digoxin 0.125 MG TAB PO SCH (09:00)
[2017-09-16 15:56] VITALS: BP 138/79; TEMP 97.7
--- NOTE | 2017-09-16 16:37 | PDOC.CTH ---
Cardiology Progress Note - Subjective No new issues or concerns. - Objective Vital Signs Temp Pulse Resp BP Pulse Ox 09/16/17 15:45 97.7 F 86 18 138/79 92 L 09/16/17 11:39 98 F 70 16 139/67 98 09/16/17 08:27 98 09/16/17 08:20 98.7 F 98 18 125/68 96 Weight 160 lb 09/15/17 09/16/17 09/17/17 06:59 06:59 06:59 Intake Total 3515 1200 Output Total 1250 1050 Balance 2265 150 - Physical Examination General/Neuro: alert & oriented x3, NAD Neck: no JVD present Lungs: unlabored respirations Heart: other: (Irreg) Abdomen: NT/ND Extremities: other: (no edema) - Telemetry Telemetry Rhythm: Afib HR 80's. - Labs Result Diagrams: 09/15/17 04:39 09/15/17 04:39 Troponin/CKMB CK-MB (CK-2) 1.6 ng/mL (0-6.6) 09/12/17 17:03 Troponin I 0.035 ng/mL (< 0.028) H 09/13/17 03:11 - Assessment/Plan 1. Afib PLAN: - Continue rate control with current regimen - Xarelto for CVA prophylaxis. - May discharge home at any time from cardiac perspective. - Follow up with Dr. Romero in 2-4 weeks.
--- NOTE | 2017-10-14 16:47 | EKG ---
Test Reason : Blood Pressure : / mmHG Vent. Rate : 094 BPM Atrial Rate : 107 BPM P-R Int : 000 ms QRS Dur : 082 ms QT Int : 286 ms P-R-T Axes : 000 -12 108 degrees QTc Int : 357 ms Atrial fibrillation Nonspecific T wave abnormality Abnormal ECG Confirmed by FANI SOLORIO, CHRISTINA ([id number]), editorial writer HARMONY WILEY ([id number]) on 10/14/2017 4:46:55 PM Referred By: Confirmed By:CHRISTINA MOHR MD
== END 2017-09-16 16:20 | disposition home or self-care (01) | DRG 292 ==
LOC: ERS 16:15 → 2NO 18:00
PROVIDERS: ADMIT Family Medicine; ATTEND Family Medicine
DX: I11.0 Hypertensive heart disease with heart failure (principal); I48.1 Persistent atrial fibrillation; N17.9 Acute kidney failure, unspecified; J44.9 Chronic obstructive pulmonary disease, unspecified; I50.33 Acute on chronic diastolic (congestive) heart failure; E11.9 Type 2 diabetes mellitus without complications; E03.9 Hypothyroidism, unspecified; E78.5 Hyperlipidemia, unspecified; K59.00 Constipation, unspecified; F41.9 Anxiety disorder, unspecified; R09.02 Hypoxemia; Z85.828 Personal history of other malignant neoplasm of skin; Z79.82 Long term (current) use of aspirin; Z82.0 Family history of epilepsy and other diseases of the nervous system; Z80.8 Family history of malignant neoplasm of other organs or systems
CPT/HCPCS: 36415; 36416; 51702; 71010; 80048; 80053; 81003; 81015; 82550; 82553; 83690; 83735; 83880; 84100; 84443; 84484; 85025; 85610; 85730; 87077; 87086; 87186; 93005; 93306; 93798; 94760; 96374; A4216; G8978-GP-CL; G8979-GP-CJ; G8987-GO-CI; G8988-GO-CI; G8989-GO-CI; J1650; J1940; J7050

== ENCOUNTER 2018-08-13 09:44 | Outpatient (CLI) | payer MEDICARE ==
--- NOTE | 2018-08-13 11:57 | RAD ---
TWO VIEWS CHEST: History: Dyspnea. Date: 08-13-18 Comparison: 09-12-17 FINDINGS: There is a large hiatal hernia. This is unchanged since the previous comparison exam. Some cardiomega ly and pulmonary vascular congestion is seen. Left shoulder degenerative changes seen. IMPRESSION: 1. Cardiomegaly and pulmonary vascular congestion. 2. Hiatal hernia. POS: [facility]
== END 2018-08-13 09:45 | disposition home or self-care (01) ==
LOC: RAD 09:44
PROVIDERS: ATTEND Internal Medicine
DX: R06.00 Dyspnea, unspecified (principal); I51.7 Cardiomegaly; R09.89 Other specified symptoms and signs involving the circulatory and respiratory systems; K44.9 Diaphragmatic hernia without obstruction or gangrene
CPT/HCPCS: 71046

== ENCOUNTER 2018-08-23 08:46 | Outpatient (CLI) | payer MEDICARE | END 2018-08-23 08:47 | disposition home or self-care (01) | LOC: CP 08:46 | PROVIDERS: ATTEND Internal Medicine | DX: R06.00 Dyspnea, unspecified (principal); G47.33 Obstructive sleep apnea (adult) (pediatric); J44.9 Chronic obstructive pulmonary disease, unspecified | CPT/HCPCS: 94060; 94727 ==

== ENCOUNTER 2019-04-18 02:23 | Emergency (ER) | payer MEDICARE ==
--- NOTE | 2019-04-18 07:14 | CT ---
PRELIMINARY REPORT/[facility]/EMERGENCY AFTER HOURS PROCEDURE: EXAM: CT Pelvis Without Contrast, Skeletal EXAM DATE/TIME: 04/18/2019 3:50 AM CLINICAL HISTORY: 88 years old, female; Hip pain; Left hip; Patient HX: 88 yo F presents for b/l leg pain left worse th an right. PT reports symptoms started this evening around 10pm. She has experienced similar symptoms in the past that were much more severe. Denies trauma, bowel/bladder incontinence, saddle paresthesia s TECHNIQUE: Imaging protocol: Axial computed tomography images of the pelvis without intravenous contrast. Exam f ocused on the skeletal structures. Coronal and sagittal reformatted images were created and reviewed. COMPARISON: No relevant prior studies available. FINDINGS: Bones/joints: Lower lumbar spondylosis and facet arthrosis with L4-L5 and and L5-S1 disc bulges, at l east mild L4-L5 canal stenosis, and bilateral L4-L5 and L5-S1 neural foraminal narrowing. No acute fr acture or subluxation identified. Soft tissues: Unremarkable. IMPRESSION: No acute findings. Thank you for allowing us to participate in the care of your patient. Dictated and Authenticated by: Carlos Quinn MD 04/18/2019 5:14 AM Central Time ([place] & [place]) FINAL REPORT EMERGENCY AFTER HOURS CT PELVIS WITHOUT CONTRAST: Date: 04/18/19 FINDINGS/IMPRESSION: I agree with the findings and impression given in the preliminary report per [facility] physician. No acute abnormality of the pelvis.
--- NOTE | 2019-04-18 07:24 | RAD ---
EXAM: 2 views of the left femur HISTORY: Leg pain COMPARISON: None FINDINGS: There is no evidence of acute fracture or dislocation. No soft tissue swelling is seen. No degenerative changes are seen in the hip. IMPRESSION: No evidence of acute osseous abnormality.
--- NOTE | 2019-04-18 07:25 | RAD ---
Exam: Single view of the pelvis HISTORY: Left leg pain COMPARISON: None FINDINGS: A single view the pelvis shows no evidence of acute fracture or dislocation. No degenerativ e changes seen in either hip. Moderate degenerative changes are seen in the spine. IMPRESSION: No evidence of acute osseous abnormality.
--- NOTE | 2019-04-18 07:26 | RAD ---
EXAM: 3 views of the lumbosacral spine HISTORY: Low back pain and left leg pain COMPARISON: 05/20/2014 FINDINGS: 3 views of the lumbosacral spine shows normal height of the vertebral bodies without fractu re or subluxation. The intervertebral discs are narrowed throughout the lumbar spine with moderate osteophyte formation. The intervertebral disc space narrowing has progressed compared to the prior ra diograph. Endplate degenerative changes are seen surrounding L3/4. Posterior facet arthrosis is seen in the lower lumbosacral spine. The sacroiliac joints are unremarkable. Vascular calcifications are seen in the aorta. IMPRESSION: Severe degenerative changes of lumbar spine without acute osseous abnormality.
--- NOTE | 2019-04-19 09:36 | EKG ---
Test Reason : Blood Pressure : / mmHG Vent. Rate : 096 BPM Atrial Rate : 136 BPM P-R Int : 000 ms QRS Dur : 086 ms QT Int : 384 ms P-R-T Axes : 000 -20 -14 degrees QTc Int : 485 ms Atrial fibrillation Anterior infarct , age undetermined Abnormal ECG Confirmed by MORALES GERMAN D.O. ([id number]), brands editor VEL QUINN ([id number]) on 04/19/2019 9:36:06 AM Referred By: Confirmed By:MORALES GERMAN D.O.
== END 2019-04-18 04:08 | disposition home or self-care (01) ==
LOC: ERS 02:23
DX: M47.816 Spondylosis without myelopathy or radiculopathy, lumbar region (principal); J44.9 Chronic obstructive pulmonary disease, unspecified; E11.9 Type 2 diabetes mellitus without complications; E03.9 Hypothyroidism, unspecified; I11.0 Hypertensive heart disease with heart failure; I50.9 Heart failure, unspecified; F41.9 Anxiety disorder, unspecified; F32.9 Major depressive disorder, single episode, unspecified; Z87.891 Personal history of nicotine dependence; Z79.01 Long term (current) use of anticoagulants; Z79.899 Other long term (current) drug therapy; Z79.84 Long term (current) use of oral hypoglycemic drugs
CPT/HCPCS: 72100; 72170; 72192; 93005

== ENCOUNTER 2019-07-28 11:51 | Inpatient (IN) | payer MEDICARE ==
[2019-07-28 12:56] LABS: Bilirubin Negative (Negative); Blood, Urine Negative (Negative); Clarity Clear (Clear); Glucose, Urine (Dipstick) Normal (Negative); Leukocyte Negative Leu/uL (Negative); Nitrite Negative (Negative); Protein, Urine (Dipstick) Negative (Neg-Trace); Urobilinogen Normal mg/dL (Less than 2)
[2019-07-28 12:59] LABS: #Eosinphils 0.1 thou/uL (0.0-0.7); #Lymphocytes 1.6 thou/uL (1.20-3.40); #Monocytes 0.9 thou/uL (0.11-0.59); #Neutrophils 7.8 thou/uL (1.40-6.50); %Basophils 0.2 % (0.0-1.0); %Eosinophils 0.7 % (0.0-10.0); %Monocytes 8.9 % (0.0-10.0); %Neutrophils 75.2 % (42.0-75.0); Anisocytosis SLIGHT = 6-15 cells (100X) (0-5/hpf); Hemoglobin 10.3 g/dL (12.0-16.0); Hypochromia SLIGHT = 6-15 cells (100X) (0-5/hpf); Large Platelets SLIGHT; MDiff Complete? YES; Mean Corpuscular HGB CONC 31.7 g/dL (32.0-36.0); Mean Corpuscular Hemoglobin 23.3 pg (27.0-31.0); Mean Corpuscular Volume 73.6 fL (78.0-98.0); Mean Platelet Volume 9.6 fL (7.4-10.4); Microcytosis SLIGHT = 6-15 cells (100X) (0-5/hpf); Platelet Count 318 thou/uL (130-400); Platelet Morphology Comment Appears Adequate; Polychromasia SLIGHT = 2-3 cells (100X) (0-2/hpf); RBC Distribution Width 18.8 % (11.5-14.5); White Blood Cell (WBC) Count 10.3 thou/uL (4.8-10.8)
[2019-07-28 13:00] LABS: ALT (SGPT) 28 U/L (8-55); AST (SGOT) 41 U/L (5-34); Albumin 3.8 g/dL (3.4-4.8); Alkaline Phosphatase 139 U/L (40-110); Anion Gap 12 mmol/L (10-20); BUN (Urea Nitrogen) 9 mg/dL (9.8-20.1); Bilirubin, Total 0.5 mg/dL (0.2-1.2); Calc. Creatinine Clearance 0 mL/min (70-130); Calcium 9.7 mg/dL (7.8-10.44); Carbon Dioxide 27 mmol/L (23-31); Chloride 103 mmol/L (98-107); Estimated GFR-MDRD 67; Globulin 3.9 g/dL (2.4-3.5); Glucose 119 mg/dL (83-110); Potassium 4.5 mmol/L (3.5-5.1); Protein, Total 7.7 g/dL (6.0-8.3); Sodium 137 mmol/L (136-145)
[2019-07-28 13:02] LABS: Digoxin Less than 0.15 ng/mL (0.8-2.0)
--- NOTE | 2019-07-28 13:18 | RAD ---
Exam: Chest one view HISTORY:Cough Comparison: 09/12/2017 FINDINGS: Lungs: Interstitial prominence bilaterally Cardiac silhouette:Enlarged cardiac silhouette. Single lead left subclavian approach AICD with lead o verlying the right ventricle. There is vascular calcification. Pulmonary vessels: Engorged Pleural Spaces: Mild obscuration of left lateral construct sulcus and slight blunting of the right co st phrenic sulcus may relate to small volume pleural fluid versus pleural thickening Pneumothorax: None Osseous abnormalities: None of acuity. IMPRESSION: Findings indicate decompensated CHF. Correlate clinically.
[2019-07-28 13:23] LABS: CKMB 3.1 ng/mL (0-6.6)
[2019-07-28] MEDS ORDERED: Diltiazem 125 MG/25 ML ONE (14:42)
--- NOTE | 2019-07-28 16:02 | PDOC.FPRHP ---
- History of Present Illness Chief Complaint: High Blood Pressure History of Present Illness: Mrs. Finn is an 88 y/o female with a history of A-Fib, CHF, HTN, HLD and COPD who presents with her daughter to the ED for a CC of HTN. The patient's daughter, who is her primary caregiver, noted that she measured her mother's BP earlier on 07/28 and became alarmed that it was elevated. Mrs. Finn's only complaint at this time was mild cough and sinus congestion for the past week. She denied any headaches, changes in vision, changes in hearing, chest pain, feelings of palpitations, SOB, N/V/D, abdominal pain, dysuria or hematochezia. Additionally, she denied any traumatic falls or feelings of syncope. - Allergies/Adverse Reactions Allergies Allergy/AdvReac Type Severity Reaction Status Date / Time No Known Allergies Allergy Verified 07/28/19 18:32 - Home Medications Medication Instructions Recorded Confirmed Type Escitalopram Oxalate 10 mg PO DAILY 09/12/17 07/28/19 History Levothyroxine Sodium 50 mcg PO DAILY 09/12/17 07/28/19 History Lisinopril 5 mg PO DAILY 09/12/17 07/29/19 History Potassium Chloride 20 meq PO BID 09/12/17 07/28/19 History Atorvastatin Calcium [Lipitor] 80 mg PO HS 30 Days #60 tab 09/14/17 07/28/19 Rx Rivaroxaban [Xarelto] 20 mg PO 1800 30 Days #60 tab 09/14/17 07/28/19 Rx Carvedilol [Coreg] 25 mg PO BID-WM 07/28/19 07/28/19 History Digoxin [Lanoxin] 0.25 mg PO DAILY 07/29/19 07/29/19 History Torsemide 20 mg PO DAILY 07/29/19 07/29/19 History - History PMHx: atrial fibrillation, hypothyroidism, anxiety, copd, hyperlipidemia, hypertension, diabetes PSHx: appendectomy, hysterectomy, skin cancer FHx:Father:brain cancer Social: Remote tobacco abuse, no alcohol or drug use - Review of Systems General: denies: fever/chills, night sweats, fatigue Eyes: denies: vision changes ENT: reports: nasal congestion. denies: rhinorrhea Respiratory: reports: congestion. denies: cough, shortness of breath Cardiovascular: denies: chest pain, palpitation, edema (The patient's mother felt that her legs had been swelling lately) Gastrointestinal: denies: nausea, vomiting, diarrhea, constipation, abdominal pain Genitourinary: denies: dysuria Skin: denies: rashes, lesions Musculoskeletal: denies: pain Neurological: denies: syncope, weakness - Vital signs BP: [163/85] HR: [67] RR: [21] Tmax: [] Pox: [98]% on [2L Nasal Canula] Wt: [ 72 kg] - Physical Exam Constitutional: NAD, awake, alert and oriented, well developed HEENT: normocephalic and atraumatic, PERRLA, EOMI, conjunctiva clear, no scleral icterus, grossly normal vision, grossly normal hearing, normal nasal mucosa, MMM, oropharynx clear, good dention Neck: supple, FROM, trachea midline, no LAD Chest: no-tender to palpation, no lesions Heart: normal S1/S2, no murmurs/rubs/gallops, pulses present, no edema, other ( Irregularly irregular) Lungs: CTAB, no respiratory distress, good air movement, no rales/rhonchi, no wheezing, no retractions Abdomen: soft, non-tender, no masses/distention Musculoskeletal: normal structure, ROM grossly normal Neurological: no focal deficit, CN II-XII intact Skin: no rash/lesions Heme/Lymphatic: no unusual bruising or bleeding, no purpura, no petechia Psychiatric: normal mood and affect, good judgment and insight, intact recent and remote memory FMR H&P: Results - Labs Result Diagrams: 07/29/19 04:38 07/29/19 04:38 Lab results: WBC 10.3 thou/uL (4.8-10.8) 07/28/19 12:33 Hgb 10.3 g/dL (12.0-16.0) L 07/28/19 12:33 Hct 32.3 % (36.0-47.0) L 07/28/19 12:33 MCV 73.6 fL (78.0-98.0) L 07/28/19 12:33 Plt Count 318 thou/uL (130-400) 07/28/19 12:33 Neutrophils % 75.2 % (42.0-75.0) H 07/28/19 12:33 Sodium 137 mmol/L (136-145) 07/28/19 12:34 Potassium 4.5 mmol/L (3.5-5.1) 07/28/19 12:34 Chloride 103 mmol/L (98-107) 07/28/19 12:34 Carbon Dioxide 27 mmol/L (23-31) 07/28/19 12:34 BUN 9 mg/dL (9.8-20.1) L 07/28/19 12:34 Creatinine 0.81 mg/dL (0.6-1.1) 07/28/19 12:34 Glucose 119 mg/dL (83-110) H 07/28/19 12:34 Calcium 9.7 mg/dL (7.8-10.44) 07/28/19 12:34 Total Bilirubin 0.5 mg/dL (0.2-1.2) 07/28/19 12:34 AST 41 U/L (5-34) H 07/28/19 12:34 ALT 28 U/L (8-55) 07/28/19 12:34 Alkaline Phosphatase 139 U/L (40-110) H 07/28/19 12:34 CK-MB (CK-2) 3.1 ng/mL (0-6.6) 07/28/19 12:34 Serum Total Protein 7.7 g/dL (6.0-8.3) 07/28/19 12:34 Albumin 3.8 g/dL (3.4-4.8) 07/28/19 12:34 Urine Ketones Negative mg/dL (Negative) 07/28/19 12:38 Urine Blood Negative (Negative) 07/28/19 12:38 Urine Nitrite Negative (Negative) 07/28/19 12:38 Ur Leukocyte Esterase Negative Juliet/uL (Negative) 07/28/19 12:38 FMR H&P: A/P - Plan 1. A-Fib w/ RVR -Trops: 0.033, 0.033, 0.021 -Digoxin: 0.15 (Sub-Therapeutic) -TSH: 1.5 -M -Phos: 2.2 -Procal: 0.03 -Echo: Pending -Currently controlled with Diltiazem drip -Continue home regimen of Xarelto -PT/OT consulted 2. Suspected CHF Exacerbation -BNP: 975 -Trops: 0.033, 0.033, 0.021 -Digoxin: 0.15 (Sub-Therapeutic) -CXR: Findings consistent w/ Decompensated HF -Echo: Pending -Administered Lasix 40 mg IV on 07/28 -Strict I&O 3. HLD -Continue home medication regimen 4. Hypothyroidism -Continue home medication regimen Code Status: DNAR Diet: Heart Healthy & Renal Diet Activity: [place] Dispo: Patient's recurrence of A-Fib w/ RVR is concerning. Await echo results and continue with medication regimen per above. Monitor clinically for improvement of suspected CHF exacerbation. Expected LOS > 48H. FMR H&P: Upper Level - Pertinent history 88yo female with pmh of DMII, HTN, HLD, Afib, and pacemaker placement March 2019 presents with her daughter whom she lives with for elevated BP today. On further questioning pt can feel palpitations when she is in Afib with RVR and has felt palpitations on and off since last night. Also reports cough, fatigue, lightheadedness, weakness since last night. Denies orthopnea, SOB, Chest pain. She has been taking her digoxin every day as directed but reports they have been titrating the dose. In the ED she received 1L NS and dilt IVP. This temporarily reduced her HR but shortly after went into Afib with RVR requiring dilt gtt. - Pertinent findings PE: General: NAD CV: Afib with rate in low 100's Pulm: CTA b/l, no crackles Abdomen: Soft, nontender Extremities: No edema A&P: Afib with RVR - Rate currently controlled on dilt gtt - Pt on digoxin at home but digoxin level is subtherapeutic, will likely need increased dose - Continue Xarelto - Ordered TSH, Mg, Phos - Admit to tele HFrEF likely in exacerbation - BNP elevated 975. CXR: Signs of decompensated CHF - Last echo documented 08/2017, systolic function normal- unable to eval dystolic dysfunction due to afib - Echo ordered - Ordered IV lasix 40mg, will watch I&Os and order next dose accordingly. Daily wts and HH diet with fluid restriction Indeterminate troponin - 0.033, continue to trend. No acute ischemia on EKG. For other chronic medical problems please refer to international tax manager assessment and plan for details. - Plan Date/Time: 07/28/19 [id number] I, Beti Wheatley, have evaluated this patient and agree with findings/plan as outlined by international tax manager resident. Pertinent changes/additions are listed here. Addendum - Attending - Attending Attestation Date/Time: 07/28/19 652 I personally evaluated the patient and discussed the management with Dr. Clemente. I agree with the History, Examination, Assessment and Plan documented above with any addition or exceptions noted below. The patient presented with hypertension at home and a history of cough and sinus congestion. She was found to be in afib with RVR, elevated bnp. starting diltiazem drip, lasix. PT/OT for weakness. Getting echo.
[2019-07-28 16:25] LABS: Hemoglobin A1c 5.7 % (4.0-6.0)
[2019-07-28 16:35] LABS: Phosphorus 2.2 mg/dL (2.3-4.7)
[2019-07-28 16:41] LABS: Troponin I 0.033 ng/mL (< 0.028)
[2019-07-28 16:55] LABS: Thyroid Stimulating Hormone 1.5316 uIU/mL (0.35-4.94)
[2019-07-28] MEDS ORDERED: Acetaminophen 325 MG TAB PO PRN (18:10)
[2019-07-28] MEDS ORDERED: Ondansetron PF 4 MG/2 ML Vial IVP PRN (18:10)
[2019-07-28] MEDS ORDERED: Ondansetron ODT 4 MG TAB SL PRN (18:10)
[2019-07-28] MEDS ORDERED: PHOS-NAK 1 PKT PACK PO SCH (18:13)
[2019-07-28] MEDS ORDERED: Furosemide 40 MG/4 ML VIAL SLOW IVP SCH (18:13)
[2019-07-28 19:52] LABS: Troponin I 0.021 ng/mL (< 0.028)
[2019-07-29] MEDS: Diltiazem 125 MG in Sodium Chloride 0.9% 100 ML IVPB SCH (01:46)
[2019-07-29] MEDS: Levothyroxine Sodium 50 MCG TAB PO SCH (05:00)
[2019-07-29 05:03] LABS: Eosinophils 1 % (0-10); Hemoglobin 9.3 g/dL (12.0-16.0); Lymphocytes 23 % (21-51); MDiff Complete? YES; Mean Corpuscular HGB CONC 31.1 g/dL (32.0-36.0); Mean Corpuscular Hemoglobin 22.9 pg (27.0-31.0); Mean Corpuscular Volume 73.7 fL (78.0-98.0); Mean Platelet Volume 9.2 fL (7.4-10.4); Metamyelocyte 1 % (0-0); Monocytes 13 % (0-10); Neutrophil 62 % (42-75); Platelet Count 289 thou/uL (130-400); Platelet Morphology Comment Appears Adequate; RBC Distribution Width 18.4 % (11.5-14.5); Red Blood Cell (RBC) Count 4.05 mill/uL (4.20-5.40); White Blood Cell (WBC) Count 10.3 thou/uL (4.8-10.8)
[2019-07-29 05:18] LABS: Anion Gap 12 mmol/L (10-20); BUN (Urea Nitrogen) 11 mg/dL (9.8-20.1); Calc. Creatinine Clearance 62 mL/min (70-130); Carbon Dioxide 26 mmol/L (23-31); Chloride 103 mmol/L (98-107); Estimated GFR-MDRD 77; Glucose 88 mg/dL (83-110); Potassium 3.6 mmol/L (3.5-5.1); Sodium 137 mmol/L (136-145)
--- NOTE | 2019-07-29 06:09 | PDOC.FM ---
- Subjective Subjective: VSS on 2 L O2. Mild hypertension sbp 150s. Feels "better" than yesterday. Better breathing. Not on oxygen at home. - Objective MAR Reviewed: Yes Vital Signs & Weight: Vital Signs (12 hours) Temp Pulse Resp BP Pulse Ox 07/29/19 04:00 97.4 F L 95 20 154/93 H 96 07/29/19 00:00 97.7 F 61 18 157/76 H 94 L 07/28/19 19:30 97.3 F L 82 20 165/77 H 94 L Weight Weight 68.991 kg I&O: 07/27/19 07/28/19 07/29/19 06:59 06:59 06:59 Intake Total 362 Output Total 2500 Balance -2138 Result Diagrams: 07/29/19 04:38 07/29/19 04:38 Phys Exam - Physical Examination Constitutional: NAD HEENT: moist MMs, sclera anicteric, oral pharynx no lesions Respiratory: no wheezing, clear to auscultation bilateral Cardiovascular: irregular (irr irr) Gastrointestinal: soft, non-tender, no distention Musculoskeletal: no edema, pulses present Psychiatric: normal affect, A&O x 3 Dx/Plan (1) Atrial fibrillation Code(s): I48.91 - UNSPECIFIED ATRIAL FIBRILLATION Status: Acute Qualifiers: Atrial fibrillation type: persistent (2) CHF exacerbation Code(s): I50.9 - HEART FAILURE, UNSPECIFIED Status: Acute (3) COPD (chronic obstructive pulmonary disease) Status: Chronic Qualifiers: COPD type: unspecified COPD Qualified Code(s): J44.9 - Chronic obstructive pulmonary disease, unspecified (4) HLD (hyperlipidemia) Code(s): E78.5 - HYPERLIPIDEMIA, UNSPECIFIED Status: Chronic Qualifiers: Hyperlipidemia type: unspecified Qualified Code(s): E78.5 - Hyperlipidemia , unspecified (5) HTN (hypertension) Code(s): I10 - ESSENTIAL (PRIMARY) HYPERTENSION Status: Chronic Qualifiers: Hypertension type: essential hypertension Qualified Code(s): I10 - Essential (primary) hypertension (6) Hypothyroidism Code(s): E03.9 - HYPOTHYROIDISM, UNSPECIFIED Status: Chronic (7) diabetes mellitus type 2 Status: Chronic - Plan Plan: 88-yo female w/ hx of a-fib admitted for recurrent: A-Fib w/ RVR -Trops: 0.033, 0.033, 0.021 -Digoxin: 0.15 (Sub-Therapeutic) -Procal: 0.03 -Echo: Pending -Currently controlled with Diltiazem drip at 5 ml/hr -Continue home regimen of Xarelto -PT/OT consulted - interrogate pacemaker - consult cards for diltiazem gtt to digoxin conversion Suspected CHF Exacerbation -BNP: 975 -CXR: Findings consistent w/ Decompensated HF -Echo: Pending -Lasix 40 mg IV today -Strict I&O HLD Hypothyroidism HTN Type 2 diabetes mellitus COPD -Continue home medication regimen Code Status: DNAR Diet: Heart Healthy & Renal Diet Activity: [place] Dispo:
[2019-07-29] MEDS ORDERED: Lisinopril 20 MG TAB PO SCH (09:00)
[2019-07-29] MEDS ORDERED: FLU VACC TS2019-20(65YR UP)/PF 180 MCG/0.5 ML SYRINGE IM ONE (09:00)
[2019-07-29] MEDS: Escitalopram Oxalate 10 mg Tablet PO SCH (09:02)
[2019-07-29] MEDS ORDERED: Furosemide 40 MG/4 ML VIAL SLOW IVP SCH (10:00)
[2019-07-29] MEDS: Rivaroxaban 10 MG TAB PO SCH (17:43)
[2019-07-29] MEDS ORDERED: Digoxin 0.5 MG/2 ML AMP SLOW IVP SCH ×2 (17:45→23:59)
[2019-07-29] MEDS: Atorvastatin Calcium 40 MG TAB PO SCH (21:30)
--- NOTE | 2019-07-29 22:20 | CON ---
DATE OF CONSULTATION: HISTORY OF PRESENT ILLNESS: Sarah Finn is an 88-year-old white female, followed by Dr. Romero since August 2017. At that time, she was admitted with atrial fibrillation and placed on Xarelto. She has been on carvedilol and digoxin 0.25 mg q.a.m. for rate control. In August 2018, she had a single-chamber pacemaker placed for bradycardia. She was brought to the emergency room by her daughter due to elevated blood pressure. She also had been complaining of mild cough and sinus congestion, and was taking some type of rkvc-xsz-csmjzjg medication for that, although the patient is uncertain what she was taking. She states she has been having some exertional dyspnea, but denies any chest discomfort. She was found to have a fast ventricular response in the emergency room with heart rates in the 140s to 150s and essentially digoxin level of less than 0.15. She has been placed on a Cardizem drip. PAST MEDICAL HISTORY: Chronic atrial fibrillation, hypothyroidism, COPD, hyperlipidemia, hypertension, diabetes. MEDICATIONS: At home include; 1. Atorvastatin 80 at bedtime. 2. Carvedilol 25 b.i.d. 3. Digoxin 0.25 daily. 4. Escitalopram 10 mg daily. 5. Levothyroxine 50 mcg daily. 6. Lisinopril 5 daily. 7. Potassium 20 mEq b.i.d. 8. Torsemide 20 daily. 9. Xarelto 20 daily. ALLERGIES: NONE. PAST SURGICAL HISTORY: Appendectomy, hysterectomy, removal of skin cancer. SOCIAL HISTORY: She smoked in the past. She does not drink. REVIEW OF SYSTEMS: Otherwise unremarkable. PHYSICAL EXAMINATION: VITAL SIGNS: Blood pressure 174/97, pulse 79. HEENT: PERRL. NECK: Supple. CHEST: Clear. CARDIAC: S1 and S2 normal without any S3, S4, or murmurs. The patient is tachycardic in the 120s and irregularly irregular. ABDOMEN: Normal bowel sounds without tenderness, or organomegaly. EXTREMITIES: Revealed no clubbing, cyanosis, or edema. NEUROLOGIC: Grossly intact. SKIN: Warm and dry. LABORATORY DATA: EKG reveals atrial fibrillation with rate of 132 per minute, poor R-wave progression. No acute changes. [facility] she has had heart rates up to 188 per minute, which appeared to have started yesterday. Digoxin 0.015. Hemoglobin 9.3, hematocrit 29.8, white count 10,300, platelets 289,000. Sodium 137, potassium 3.6, chloride 103, carbon dioxide 26, BUN 11, creatinine 0.72. BNP 975.9. Troponin I is 0.033. TSH is normal. IMPRESSION: 1. Chronic atrial fibrillation, now with rapid ventricular response. She was seen in the office 1 week ago. At that time, her blood pressure was 102/62 with a heart rate of 84 per minute. With essentially digoxin level of zero, certainly consideration of noncompliance with her medications needs to be considered. Also, she has been taking some type of ofdo-ube-vpexrnr cold medicine, which also could have increased her heart rate if this contains a decongestant. She is chronically anticoagulated. 2. Hypertension, poorly controlled, which may also be due to noncompliance with medications. 3. Diabetes. 4. Probable some degree of diastolic heart failure. 5. Status post pacemaker. PLAN: The patient will be loaded with intravenous digoxin and resume carvedilol and torsemide. Echocardiogram will be performed to reassess left ventricular function. I will ask the nurses to have the daughter bring her medications as well as the hvrj-suf-davrgnj medication that she has been taking for her cold. Job ID: [id number] MTDD
[2019-07-29] MEDS ORDERED: Acetaminophen 325 MG TAB PO PRN (22:43)
[2019-07-29] MEDS ORDERED: hydrALAZINE 20 MG/ML VIAL SLOW IVP PRN (23:55)
[2019-07-30] MEDS: Diltiazem 125 MG in Sodium Chloride 0.9% 100 ML IVPB SCH (04:27)
--- NOTE | 2019-07-30 05:49 | PDOC.FM ---
- Subjective Subjective: VSS. Overnight had SBP 180, prn hydralazine given. Reports "feeling good" this AM. On 2 L O2. Not on oxygen at home. Has continued to cough, bringing up some light pink sputum, unchanged from yesterday. Saw Dr. Miller yesterday. He requested daughter bring in name of cold medication she was taking prior to admission that may have contributed to her low digoxin levels. - Objective MAR Reviewed: Yes Vital Signs & Weight: Vital Signs (12 hours) Temp Pulse Resp BP Pulse Ox 07/30/19 04:00 98.4 F 76 18 136/59 L 95 07/30/19 00:00 98.7 F 103 H 18 157/89 H 95 07/29/19 23:05 94 07/29/19 20:00 98.8 F 94 16 168/82 H 97 07/29/19 18:24 79 Weight Weight 68.991 kg I&O: 07/28/19 07/29/19 07/30/19 06:59 06:59 06:59 Intake Total 362 830.9 Output Total 2500 1000 Balance -2138 -169.1 Result Diagrams: 07/30/19 05:23 07/30/19 05:23 Radiology: CXR this AM: unofficial read, continued enlarged cardiac silhouette compared w/ prior, improvement/less blunting of left costophrenic angle, improvement in right interstitial lung markings. AICD in place Phys Exam - Physical Examination Constitutional: NAD HEENT: sclera anicteric Respiratory: no wheezing, clear to auscultation bilateral irregular rhythm, normal rate, no murmur Gastrointestinal: soft, non-tender, no distention, positive bowel sounds Musculoskeletal: no edema, pulses present Psychiatric: normal affect, A&O x 3 Skin: no rash Dx/Plan (1) Atrial fibrillation Code(s): I48.91 - UNSPECIFIED ATRIAL FIBRILLATION Status: Acute Qualifiers: Atrial fibrillation type: persistent (2) CHF exacerbation Code(s): I50.9 - HEART FAILURE, UNSPECIFIED Status: Acute (3) COPD (chronic obstructive pulmonary disease) Status: Chronic Qualifiers: COPD type: unspecified COPD Qualified Code(s): J44.9 - Chronic obstructive pulmonary disease, unspecified (4) HLD (hyperlipidemia) Code(s): E78.5 - HYPERLIPIDEMIA, UNSPECIFIED Status: Chronic Qualifiers: Hyperlipidemia type: unspecified Qualified Code(s): E78.5 - Hyperlipidemia , unspecified (5) HTN (hypertension) Code(s): I10 - ESSENTIAL (PRIMARY) HYPERTENSION Status: Chronic Qualifiers: Hypertension type: essential hypertension Qualified Code(s): I10 - Essential (primary) hypertension (6) Hypothyroidism Code(s): E03.9 - HYPOTHYROIDISM, UNSPECIFIED Status: Chronic (7) diabetes mellitus type 2 Status: Chronic - Plan Plan: 88-yo female w/ hx of a-fib admitted for recurrent: A-Fib w/ RVR -Trops: 0.033, 0.033, 0.021 -Digoxin: 0.15 (Sub-Therapeutic) -Procal: neg -Echo: result Pending - Continue home regimen of Xarelto - PT/OT consulted - interrogated pacemaker - Cardiology consult, appreciate recs. Initiated digoxin and continuing diltiazem drip at 5 ml/hr - Overnight telemetry showed HR in 70s with some ventricular pacing. Suspected CHF Exacerbation - BNP: 975 - CXR: Findings consistent w/ Decompensated HF - Repeat CXR today showed improvment. Official read pending. - Echo: Pending - Cardiology resumed pt's torsemide and carvedilol - Strict I&O HLD Hypothyroidism HTN Type 2 diabetes mellitus COPD -Continue home medication regimen Code Status: DNAR Diet: Heart Healthy & Renal Diet Activity: [place] Dispo: inpatient tele.
[2019-07-30] MEDS: Levothyroxine Sodium 50 MCG TAB PO SCH (05:57)
[2019-07-30 06:05] LABS: Eosinophils 1 % (0-10); Hemoglobin 10.3 g/dL (12.0-16.0); Hypochromia SLIGHT = 6-15 cells (100X) (0-5/hpf); Lymphocytes 11 % (21-51); MDiff Complete? YES; Mean Corpuscular HGB CONC 30.7 g/dL (32.0-36.0); Mean Corpuscular Hemoglobin 22.8 pg (27.0-31.0); Mean Corpuscular Volume 74.4 fL (78.0-98.0); Mean Platelet Volume 9.1 fL (7.4-10.4); Monocytes 8 % (0-10); Neutrophil 80 % (42-75); Platelet Count 339 thou/uL (130-400); Platelet Morphology Comment Appears Adequate; RBC Distribution Width 18.5 % (11.5-14.5); Red Blood Cell (RBC) Count 4.54 mill/uL (4.20-5.40); White Blood Cell (WBC) Count 9.8 thou/uL (4.8-10.8)
[2019-07-30 06:11] LABS: Anion Gap 12 mmol/L (10-20); BUN (Urea Nitrogen) 10 mg/dL (9.8-20.1); Calc. Creatinine Clearance 60 mL/min (70-130); Calcium 8.9 mg/dL (7.8-10.44); Carbon Dioxide 27 mmol/L (23-31); Chloride 102 mmol/L (98-107); Estimated GFR-MDRD 77; Glucose 87 mg/dL (83-110); Potassium 3.5 mmol/L (3.5-5.1); Sodium 137 mmol/L (136-145)
[2019-07-30] MEDS ORDERED: Potassium Chloride 20 MEQ TAB PO SCH (08:00)
[2019-07-30] MEDS ORDERED: Digoxin 0.25 MG TAB PO SCH (09:00)
[2019-07-30] MEDS: Potassium Chloride 20 MEQ TAB PO SCH ×2 (09:03→16:47)
[2019-07-30] MEDS: Escitalopram Oxalate 10 mg Tablet PO SCH (09:04)
[2019-07-30] MEDS: Torsemide 20 MG TAB PO SCH (09:04)
[2019-07-30] MEDS: Lisinopril 5 MG TAB PO SCH (09:04)
[2019-07-30] MEDS: Carvedilol 25 MG TAB PO SCH ×2 (09:04→16:47)
--- NOTE | 2019-07-30 10:39 | RAD ---
UPRIGHT PORTABLE CHEST 1 VIEW: Date: 07/30/19 HISTORY: Follow-up congestive heart failure. COMPARISON: 07/28/19. FINDINGS: Cardiomegaly with stable increased markings bilaterally. Evidence for hiatal hernia. Left ICD. Slight ly more focal patchy density in the right mid lung probably just a confluence of shadows. No new conf luent pneumonia. IMPRESSION: Overall stable chest with increased markings bilaterally and minimal cardiomegaly. Slightly more poor ly defined opacity over the right mid chest, possibly just a confluence of shadows, possibly a small focal area of pneumonitis. Continue short-term follow-up. POS: [facility]
--- NOTE | 2019-07-30 14:31 | PDOC.CPN ---
- Subjective Date: 07/30/19 Time: 14:31 Interval history: doing better. rate controlled. - Objective Allergies/Adverse Reactions: Allergies Allergy/AdvReac Type Severity Reaction Status Date / Time No Known Allergies Allergy Verified 07/28/19 18:32 Visit Medications: Current Medications Acetaminophen (Tylenol) 650 mg PO Q4H PRN PRN Reason: Headache/Fever/MILD Pain 1-3 Last Admin: 07/29/19 23:05 Dose: 650 mg Atorvastatin Calcium (Lipitor) 80 mg PO [facility] Last Admin: 07/29/19 21:30 Dose: 80 mg [facility] Last Admin: 07/30/19 09:04 Dose: 25 mg Digoxin (Lanoxin) 0.[address] [facility] Last Admin: 07/30/19 09:03 Dose: 0.25 mg Escitalopram Oxalate (Lexapro) [address] [facility] Last Admin: 07/30/19 09:04 Dose: 10 mg Hydralazine HCl (Apresoline) 5 mg SLOW IVP Q15MIN PRN PRN Reason: systolic BP >180 Levothyroxine Sodium (Synthroid) [address] [facility] Last Admin: 07/30/19 05:57 Dose: 50 mcg Lisinopril (Zestril) [address] [facility] Last Admin: 07/30/19 09:04 Dose: 5 mg Potassium Chloride (K-Dur) 20 meq PO BID-[facility] Last Admin: 07/30/19 09:03 Dose: 20 meq Rivaroxaban (Xarelto) [address] [facility] Last Admin: 07/29/19 17:43 Dose: 20 mg Torsemide (Demadex) [address] [facility] Last Admin: 07/30/19 09:04 Dose: 20 mg Vital Signs & Weight: Vital Signs Temp Pulse Resp BP BP Pulse Ox 07/30/19 13:50 60 16 135/59 L 07/30/19 13:24 95 07/30/19 12:50 60 91/66 07/30/19 12:00 97.5 F L 67 18 109/51 L 87 L 07/30/19 11:50 60 16 109/51 L 07/30/19 10:50 62 106/66 07/30/19 09:04 71 129/71 07/30/19 09:03 71 07/30/19 08:54 97.2 F L 71 16 129/71 95 07/30/19 08:00 95 07/30/19 04:00 98.4 F 76 18 136/59 L 95 Weight 151 lb 6.4 oz - Physical Exam General: alert & oriented x3 HEENT: normocephaly Neck: no masses, no bruit Cardiac: no murmur, irregularly regular Lungs: normal exam Neuro: grossly intact - Labs Result Diagrams: 07/30/19 05:23 07/30/19 05:23 Troponin/CKMB CK-MB (CK-2) 3.1 ng/mL (0-6.6) 07/28/19 12:34 Troponin I 0.021 ng/mL (< 0.028) 07/28/19 19:14 - Assessment/Plan Assessment/Plan: Afib HTN HLD s/p pacer IC CCB d/rick HR stable On digoxin and BB Continue with ACT IVF if BP decreases Home tomorrow if stable
[2019-07-30] MEDS ORDERED: Digoxin 0.125 MG TAB PO SCH (14:45)
--- NOTE | 2019-07-30 15:00 | PQF ---
MARIA M CALDERON CATHERINE MD *r [id number] [facility] [place]-217 [id number] CLINICAL DOCUMENTATION IMPROVEMENT CLARIFICATION FORM: ICD-10 Updated PLEASE DO AN ADDENDUM TO THE PROGRESS NOTE WITH ANY DOCUMENTATION UPDATES OR ADDITIONS AND CARRY THROUGH TO DC SUMMARY. THANK YOU. DATE: 07/30/2019 ATTN:DR. Ras PATTERSON Please exercise your independent, professional judgment in responding to the clarification form. Clinical indicators are provided on the bottom of this form for your review Please check appropriate box(s): [ ] Acute Respiratory Failure: [ ] with Hypoxia[ ] with Hypercapnia [ ] Acute On Chronic Respiratory Failure: [ ] with Hypoxia [ ] with Hypercapnia [ ] Acute Respiratory Failure due to: (etiology) [X] Hypoxia [ ] Other diagnosis [ ] Unable to determine In addition, please specify: Present on Admission (POA): [X] Yes [ ] No [ ] Unable to determine For continuity of documentation, please document condition throughout progress notes and discharge summary. Thank You. CLINICAL INDICATORS - SIGNS / SYMPTOMS / LABS 07/28 ED : VITAL SIGNS // O2 SATS 90-94% RA, RESP 18-24, PULSE 112- 131 07/29 - 07/30 PN (YESENIA) ON 2 L O2. NOT ON OXYGEN AT HOME RISK: DX: CHF EXACERBATION, ACUTE ATRIAL FIBRILLATION, COPD ( PN/YESENIA) 07/29 HX FORMER SMOKER, ADVANCED AGE (88) ( CONSULT/ [facility]) 07/29 TREATMENTS: SUPPLEMENTAL OXYGEN (07/28-PRESENT) TORSEMIDE ORDERED ( 07/29) CXR (07/28, 07/30) THANK YOU! ROXANN (This form is maintained as a part of the permanent medical record) 2014 [employer]. All Rights Reserved [email or web address] [email or web address] [phone] MTDD
[2019-07-30] MEDS: Rivaroxaban 10 MG TAB PO SCH (16:48)
--- NOTE | 2019-07-30 17:20 | EKG ---
Test Reason : Blood Pressure : / mmHG Vent. Rate : 132 BPM Atrial Rate : 277 BPM P-R Int : 000 ms QRS Dur : 074 ms QT Int : 316 ms P-R-T Axes : 000 -01 -07 degrees QTc Int : 468 ms Atrial fibrillation with rapid ventricular response Anterior infarct , age undetermined Abnormal ECG Confirmed by MORALES GERMAN D.O. ([id number]), dictionary editor VEL QUINN ([id number]) on 07/30/2019 5:19:56 PM Referred By: Confirmed By:MORALES GERMAN D.O.
[2019-07-30] MEDS: Atorvastatin Calcium 40 MG TAB PO SCH (21:23)
[2019-07-31 04:31] VITALS: BMI 28.3
[2019-07-31 05:16] LABS: Band 1 % (5-11); Eosinophils 1 % (0-10); Hemoglobin 9.8 g/dL (12.0-16.0); Lymphocytes 29 % (21-51); MDiff Complete? YES; Mean Corpuscular HGB CONC 30.8 g/dL (32.0-36.0); Mean Corpuscular Hemoglobin 23.1 pg (27.0-31.0); Mean Corpuscular Volume 74.9 fL (78.0-98.0); Mean Platelet Volume 8.6 fL (7.4-10.4); Metamyelocyte 1 % (0-0); Monocytes 9 % (0-10); Neutrophil 59 % (42-75); Platelet Count 343 thou/uL (130-400); Platelet Morphology Comment Appears Adequate; RBC Distribution Width 18.2 % (11.5-14.5); Red Blood Cell (RBC) Count 4.24 mill/uL (4.20-5.40); White Blood Cell (WBC) Count 10.1 thou/uL (4.8-10.8)
[2019-07-31 05:20] LABS: Anion Gap 12 mmol/L (10-20); BUN (Urea Nitrogen) 18 mg/dL (9.8-20.1); Calc. Creatinine Clearance 52 mL/min (70-130); Carbon Dioxide 27 mmol/L (23-31); Chloride 102 mmol/L (98-107); Estimated GFR-MDRD 64; Glucose 95 mg/dL (83-110); Potassium 4.2 mmol/L (3.5-5.1); Sodium 137 mmol/L (136-145)
[2019-07-31] MEDS: Levothyroxine Sodium 50 MCG TAB PO SCH (05:25)
--- NOTE | 2019-07-31 05:36 | PDOC.FM ---
- Subjective Subjective: Pt reports she slept well overnight. Eating and drinking w/o difficulty. Reports her breathing is much better than on admission. No longer requiring oxygen and satting >91%. Has no other concerns. - Objective MAR Reviewed: Yes Vital Signs & Weight: Vital Signs (12 hours) Temp Pulse Resp BP Pulse Ox 07/31/19 04:14 98.3 F 88 20 187/95 H 95 07/31/19 00:34 94 L 07/30/19 23:53 98 F 98 20 146/67 H 07/30/19 19:03 97.8 F 68 18 122/52 L 99 Weight Weight 70.307 kg I&O: 07/29/19 07/30/19 07/31/19 06:59 06:59 06:59 Intake Total 362 1150.9 1940 Output Total 2500 1200 0 Balance -2138 -49.1 1940 Result Diagrams: 07/31/19 04:54 07/31/19 04:54 Phys Exam - Physical Examination Constitutional: NAD Respiratory: no wheezing Cardiovascular: no significant murmur (irregularly irregular) Gastrointestinal: soft, no distention Musculoskeletal: no edema, pulses present Psychiatric: normal affect, A&O x 3 Skin: no rash Dx/Plan (1) Atrial fibrillation Code(s): I48.91 - UNSPECIFIED ATRIAL FIBRILLATION Status: Acute Qualifiers: Atrial fibrillation type: persistent (2) CHF exacerbation Code(s): I50.9 - HEART FAILURE, UNSPECIFIED Status: Acute (3) COPD (chronic obstructive pulmonary disease) Status: Chronic Qualifiers: COPD type: unspecified COPD Qualified Code(s): J44.9 - Chronic obstructive pulmonary disease, unspecified (4) HLD (hyperlipidemia) Code(s): E78.5 - HYPERLIPIDEMIA, UNSPECIFIED Status: Chronic Qualifiers: Hyperlipidemia type: unspecified Qualified Code(s): E78.5 - Hyperlipidemia , unspecified (5) HTN (hypertension) Code(s): I10 - ESSENTIAL (PRIMARY) HYPERTENSION Status: Chronic Qualifiers: Hypertension type: essential hypertension Qualified Code(s): I10 - Essential (primary) hypertension (6) Hypothyroidism Code(s): E03.9 - HYPOTHYROIDISM, UNSPECIFIED Status: Chronic (7) diabetes mellitus type 2 Status: Chronic - Plan Plan: 88-yo female w/ hx of a-fib admitted for recurrent: A-Fib w/ RVR - Trops: 0.033, 0.033, 0.021 - Repeat digoxin level today: 1.91. Within therapeutic range. - Procal: neg - Echo: result Pending - Continue home regimen of Xarelto - PT/OT consulted - interrogated pacemaker - Cardiology consult, appreciate recs. Digoxin. Stopped diltiazem drip yesterday. Nick would like to follow up in office in 1-2 weeks. - Overnight telemetry showed HR 70-100 with some ventricular pacing. - Likely d/c today on digoxin and beta alon. Suspected CHF Exacerbation w/ acute hypoxia, improving. - BNP: 975 - CXR: Findings consistent w/ Decompensated HF. Repeat CXR showed improvement. - Echo: Pending - Cardiology resumed pt's torsemide and carvedilol - Strict I&O HLD Hypothyroidism HTN Type 2 diabetes mellitus COPD -Continue home medication regimen Code Status: DNAR Diet: Heart Healthy & Renal Diet Activity: [place] Dispo: inpatient tele, likely d/c today.
[2019-07-31 05:40] LABS: Digoxin 1.91 ng/mL (0.8-2.0)
--- NOTE | 2019-07-31 07:07 | PDOC.CPN ---
- Objective Allergies/Adverse Reactions: Allergies Allergy/AdvReac Type Severity Reaction Status Date / Time No Known Allergies Allergy Verified 07/28/19 18:32 Visit Medications: Current Medications Acetaminophen (Tylenol) 650 mg PO Q4H PRN PRN Reason: Headache/Fever/MILD Pain 1-3 Last Admin: 07/29/19 23:05 Dose: 650 mg Atorvastatin Calcium (Lipitor) 80 mg PO [facility] Last Admin: 07/30/19 21:23 Dose: 80 mg Carvedilol (Coreg) 25 mg PO BID-[facility] Last Admin: 07/30/19 16:47 Dose: 25 mg Digoxin (Lanoxin) 0.125 mg PO DAILY [facility] Escitalopram Oxalate (Lexapro) 10 mg PO DAILY [facility] Last Admin: 07/30/19 09:04 Dose: 10 mg Hydralazine HCl (Apresoline) 5 mg SLOW IVP Q15MIN PRN PRN Reason: systolic BP >180 Levothyroxine Sodium (Synthroid) 50 mcg PO 0600 [facility] Last Admin: 07/31/19 05:25 Dose: 50 mcg Lisinopril (Zestril) 5 mg PO DAILY [facility] Last Admin: 07/30/19 09:04 Dose: 5 mg Potassium Chloride (K-Dur) 20 meq PO BID-[facility] Last Admin: 07/30/19 16:47 Dose: 20 meq Rivaroxaban (Xarelto) 20 mg PO 1800 [facility] Last Admin: 07/30/19 16:48 Dose: 20 mg Torsemide (Demadex) 20 mg PO DAILY [facility] Last Admin: 07/30/19 09:04 Dose: 20 mg Vital Signs & Weight: Vital Signs Temp Pulse Resp BP Pulse Ox 07/31/19 04:14 98.3 F 88 20 187/95 H 95 07/31/19 00:34 94 L 07/30/19 23:53 98 F 98 20 146/67 H Weight 155 lb - Physical Exam General: alert & oriented x3 Neck: no JVD/HJR, no masses Cardiac: irregularly regular Lungs: normal exam Neuro: grossly intact Abdomen: soft, non-tender - Labs Result Diagrams: 07/31/19 04:54 07/31/19 04:54 Troponin/CKMB CK-MB (CK-2) 3.1 ng/mL (0-6.6) 07/28/19 12:34 Troponin I 0.021 ng/mL (< 0.028) 07/28/19 19:14 - Assessment/Plan Assessment/Plan: Afib HTN HLD s/p pacer 07/31 REC Rate appears stable No changes in medications On NOAC Will fu in office in 1-2 weeks IC CCB d/rick HR stable On digoxin and BB Continue with ACT IVF if BP decreases Home tomorrow if stable
[2019-07-31 07:36] VITALS: TEMP 97.6
[2019-07-31] MEDS: Escitalopram Oxalate 10 mg Tablet PO SCH (08:40)
[2019-07-31] MEDS: Carvedilol 25 MG TAB PO SCH (08:40)
[2019-07-31] MEDS: Torsemide 20 MG TAB PO SCH (08:41)
[2019-07-31] MEDS: Lisinopril 5 MG TAB PO SCH (08:41)
[2019-07-31] MEDS: Potassium Chloride 20 MEQ TAB PO SCH (08:42)
[2019-07-31] MEDS ORDERED: Digoxin 0.125 MG TAB PO SCH (09:00)
[2019-07-31 11:45] VITALS: BP 119/66
--- NOTE | 2019-08-01 14:20 | DIS ---
DATE OF ADMISSION: 07/28/2019 DATE OF DISCHARGE: 07/31/2019 RESIDENT: Mel Pham MD. CONSULTS: 1. Cardiology. 2. Cardiovascular Team. 3. Case Management. PROCEDURES: 1. EKG. 2. Chest x-ray on 07/30/2019. PRIMARY DIAGNOSIS: Atrial fibrillation with rapid ventricular response. SECONDARY DIAGNOSES: 1. Congestive heart failure exacerbation with acute hypoxia. 2. Hyperlipidemia. 3. Hypothyroidism. DISCHARGE MEDICATIONS: 1. Carvedilol 25 mg p.o. b.i.d. with meals, 60 tablets. 2. Digoxin 0.125 mg p.o. daily, 30 tablets. Discontinued medications: None. HISTORY OF PRESENT ILLNESS AND HOSPITAL COURSE: This is an 88-year-old female with history of atrial fibrillation, congestive heart failure, hypertension, hyperlipidemia, and COPD, presented with her daughter to the emergency room complaining of high blood pressure. They were measuring the blood pressure at home and it was elevated more than normal. Symptom bustos, the patient had a mild cough, sinus congestion. She denied all other symptoms. She did mention that her outpatient medical translator had been changing her dose of digoxin recently. Otherwise, she stated to be taking all of her medicines as indicated. She was on anticoagulation at home at her time of presentation with Xarelto. On presentation, the patient had an indeterminately elevated troponin, which peaked and then down trended. Her digoxin level was found to be 0.15, which is subtherapeutic. TSH was 1.5, magnesium 2.0, phosphorus 2.2. Her procalcitonin was 0.03. She was started on a diltiazem drip to control the rapid ventricular response. She was given Lasix IV. She appeared fluid overloaded. Cardiology was consulted in order to transition her from diltiazem drip to oral digoxin. The patient's heart rate began to stabilize and she remained in atrial fibrillation. Her blood pressure remained stable. By the day of discharge, the patient had been much improved and no longer requiring oxygen and was feeling well. DISPOSITION: Stable. DISCHARGE INSTRUCTIONS: 1. Location: Home. 2. Diet: Heart healthy. 3. Activity: As tolerated. 4. Followup: Follow up with PCP and Dr. Romero in the next 1 to 2 weeks. Job ID: [id number]
== END 2019-07-31 14:37 | disposition home health service (06) | DRG 308 ==
LOC: ERS 11:51 → ERHOLD 13:59 → 2SE 17:34
PROVIDERS: ADMIT Family Medicine; ATTEND Family Medicine
DX: I48.19 Other persistent atrial fibrillation (principal); I50.23 Acute on chronic systolic (congestive) heart failure; Z66 Do not resuscitate; J44.9 Chronic obstructive pulmonary disease, unspecified; E03.9 Hypothyroidism, unspecified; E11.9 Type 2 diabetes mellitus without complications; R09.02 Hypoxemia; F41.9 Anxiety disorder, unspecified; Z79.899 Other long term (current) drug therapy; Z87.891 Personal history of nicotine dependence; Z95.0 Presence of cardiac pacemaker; Z79.01 Long term (current) use of anticoagulants; Z23 Encounter for immunization
CPT/HCPCS: 36415; 71045; 80048; 80053; 80162; 81003; 82553; 83036; 83735; 83880; 84100; 84145; 84443; 84484; 85007; 85025; 85027; 90471; 90662; 93005; 93306; G0008; J1160; J1940; J3490

== ENCOUNTER 2019-09-05 21:08 | Observation (INO) | payer MEDICARE ==
--- NOTE | 2019-09-05 21:40 | RAD ---
Chest one view HISTORY: Chest pain. COMPARISON: 07/30/2019. FINDINGS: Cardiac silhouette is magnified and enlarged. Pulmonary vasculature is more engorged than o n the prior study. Mediastinum is midline with aortic calcification and a single lead left subclavian cardiac pacer. Projecting over the right central chest just above the level of the minor fissure, a focal parenchyma l opacity is more pronounced, now measuring up to 2.5 cm greatest diameter. No evidence of pneumothorax. IMPRESSION: Increasing focal infiltrate versus mass in the right lung. Now 2.5 cm diameter on the fro ntal image. Increasing pulmonary vascular congestion. Atherosclerosis.
[2019-09-05 21:55] LABS: #Eosinphils 0.1 thou/uL (0.0-0.7); #Lymphocytes 2.4 thou/uL (1.20-3.40); #Neutrophils 4.2 thou/uL (1.40-6.50); %Basophils 0.6 % (0.0-1.0); %Eosinophils 1.7 % (0.0-10.0); %Lymphocytes 30.6 % (21.0-51.0); %Monocytes 12.9 % (0.0-10.0); %Neutrophils 54.2 % (42.0-75.0); Hemoglobin 9.5 g/dL (12.0-16.0); Mean Corpuscular HGB CONC 30.4 g/dL (32.0-36.0); Mean Corpuscular Volume 72.5 fL (78.0-98.0); Mean Platelet Volume 9.3 fL (7.4-10.4); Platelet Count 272 thou/uL (130-400); RBC Distribution Width 16.8 % (11.5-14.5); Red Blood Cell (RBC) Count 4.32 mill/uL (4.20-5.40); White Blood Cell (WBC) Count 7.8 thou/uL (4.8-10.8)
[2019-09-05 22:19] LABS: ALT (SGPT) 14 U/L (8-55); AST (SGOT) 27 U/L (5-34); Albumin 3.6 g/dL (3.4-4.8); Alkaline Phosphatase 112 U/L (40-110); Anion Gap 11 mmol/L (10-20); BUN (Urea Nitrogen) 24 mg/dL (9.8-20.1); Bilirubin, Total 0.4 mg/dL (0.2-1.2); CK (CPK) 76 U/L (29-168); Calc. Creatinine Clearance 0 mL/min (70-130); Calcium 9.3 mg/dL (7.8-10.44); Carbon Dioxide 29 mmol/L (23-31); Chloride 103 mmol/L (98-107); Estimated GFR-MDRD 56; Globulin 3.2 g/dL (2.4-3.5); Glucose 148 mg/dL (83-110); Potassium 3.8 mmol/L (3.5-5.1); Protein, Total 6.8 g/dL (6.0-8.3); Sodium 139 mmol/L (136-145)
[2019-09-05] MEDS ORDERED: Aspirin Chewable 81 MG TAB ONE (22:49)
[2019-09-05 23:16] LABS: INR-International Normal Ratio 3.9; PTT 60.6 SEC (22.9-36.1); Prothrombin Time 37.7 SEC (12.0-14.7)
[2019-09-06] MEDS ORDERED: Mag-Al 1200 mg/1200 mg/30 ML UDCUP ONE (00:59)
[2019-09-06] MEDS ORDERED: Lidocaine Viscous Sol 2% 15 ml UD Cup ONE (00:59)
--- NOTE | 2019-09-06 01:24 | PDOC.FPRHP ---
- History of Present Illness Chief Complaint: Chest Pain History of Present Illness: 89yo CF with h/o COPD, Afib with pacemaker, CHF, DMII, and CKII presents with atypical chest pain. Pt had chest pain around 20:30 tonight. Pt reports left sternal chest pain underneath the pacemaker. Daughter took BP and reports it was 180/96. Pt denies any nausea. Denies any sweating. Pt reports some pain in her neck. Never had pain like this before. Pt has been going to PT/OT and home health nursing been coming and everything has been doing well. Recent saw cards in last week with routine follow up, known to Dr. Romero. States the pain feels as if the pacemaker is "shocking" her. Denies any fever/chills. CP is intermittent in nature. ED Course: ASA. Trops. - Allergies/Adverse Reactions Allergies Allergy/AdvReac Type Severity Reaction Status Date / Time No Known Allergies Allergy Verified 09/06/19 02:25 - Home Medications Medication Instructions Recorded Confirmed Type Escitalopram Oxalate 10 mg PO DAILY 09/12/17 09/06/19 History Levothyroxine Sodium 50 mcg PO DAILY 09/12/17 09/06/19 History Lisinopril 5 mg PO DAILY 09/12/17 09/06/19 History Potassium Chloride 20 meq PO BID 09/12/17 09/06/19 History Atorvastatin Calcium [Lipitor] 80 mg PO HS 30 Days #60 tab 09/14/17 09/06/19 Rx Rivaroxaban [Xarelto] 20 mg PO 1800 30 Days #60 tab 09/14/17 09/06/19 Rx Torsemide 20 mg PO DAILY 07/29/19 09/06/19 History Carvedilol [Coreg] 25 mg PO BID-WM #60 tab 07/31/19 09/06/19 Rx Digoxin [Lanoxin] 0.125 mg PO DAILY #30 tab 07/31/19 09/06/19 Rx Comments: Stopped metformin - History PMHx: atrial fibrillation, hypothyroidism, anxiety, copd, hyperlipidemia, hypertension, diabetes PSHx: appendectomy, hysterectomy, skin cancer FHx:Father: brain cancer Social: Remote tobacco abuse, no alcohol or drug use Family and patient reports being DNR - Review of Systems General: denies: fever/chills, weight/appetite/sleep changes, night sweats, fatigue Eyes: denies: eye pain, vision changes ENT: denies: nasal congestion, rhinorrhea Respiratory: denies: cough, congestion, shortness of breath, exercise intolerance Cardiovascular: reports: chest pain. denies: palpitation, edema, paroxysmal nocturnal dyspnea, orthopnea Gastrointestinal: reports: constipation (chronic). denies: nausea, vomiting, diarrhea, abdominal pain, GI bleeding Genitourinary: denies: incontinence, dysuria, polyuria Skin: denies: rashes, lesions Musculoskeletal: denies: pain, tenderness, stiffness, swelling Neurological: denies: numbness, seizure, weakness Psychological: denies: anxiety, depression - Vital signs BP: [190/76] HR: [71] RR: [16] Tmax: [97.8] Pox: [94]% on [RA] Wt: [67 kg] - Physical Exam Constitutional: NAD (resting comfortably in bed), awake, alert and oriented, well developed HEENT: normocephalic and atraumatic, conjunctiva clear, normal nasal mucosa, MMM , oropharynx clear Neck: supple, no LAD Heart: RRR, normal S1/S2, no murmurs/rubs/gallops, pulses present, no edema Lungs: CTAB, no respiratory distress, good air movement, no rales/rhonchi, no wheezing Abdomen: soft, non-tender, bowel sounds present Musculoskeletal: normal structure Neurological: no focal deficit Skin: no rash/lesions Heme/Lymphatic: no unusual bruising or bleeding, no purpura, no petechia Psychiatric: normal mood and affect, good judgment and insight, intact recent and remote memory FMR H&P: Results - Labs Result Diagrams: 09/06/19 03:10 09/06/19 03:10 Lab results: WBC 7.8 thou/uL (4.8-10.8) 09/05/19 21:43 Hgb 9.5 g/dL (12.0-16.0) L 09/05/19 21:43 Hct 31.3 % (36.0-47.0) L 09/05/19 21:43 MCV 72.5 fL (78.0-98.0) L 09/05/19 21:43 Plt Count 272 thou/uL (130-400) 09/05/19 21:43 Neutrophils % 54.2 % (42.0-75.0) 09/05/19 21:43 Sodium 139 mmol/L (136-145) 09/05/19 21:43 Potassium 3.8 mmol/L (3.5-5.1) 09/05/19 21:43 Chloride 103 mmol/L (98-107) 09/05/19 21:43 Carbon Dioxide 29 mmol/L (23-31) 09/05/19 21:43 BUN 24 mg/dL (9.8-20.1) H 09/05/19 21:43 Creatinine 0.95 mg/dL (0.6-1.1) 09/05/19 21:43 Glucose 148 mg/dL (83-110) H 09/05/19 21:43 Calcium 9.3 mg/dL (7.8-10.44) 09/05/19 21:43 Total Bilirubin 0.4 mg/dL (0.2-1.2) 09/05/19 21:43 AST 27 U/L (5-34) 09/05/19 21:43 ALT 14 U/L (8-55) 09/05/19 21:43 Alkaline Phosphatase 112 U/L (40-110) H 09/05/19 21:43 Creatine Kinase 76 U/L (29-168) 09/05/19 21:43 CK-MB (CK-2) 2.0 ng/mL (0-6.6) 09/05/19 21:43 Serum Total Protein 6.8 g/dL (6.0-8.3) 09/05/19 21:43 Albumin 3.6 g/dL (3.4-4.8) 09/05/19 21:43 - Radiology Interpretation Chest x-ray Status: image reviewed by me, report reviewed by me Additional comment: Increasing focal infiltrate versus mass in R. lung. Now 2.5 cm diameter in frontal image. Increasing pulmonary vascular congestion. Atherosclerosis. FMR H&P: A/P - Problem List (1) Atypical chest pain Current Visit: Yes Status: Acute Code(s): R07.89 - OTHER CHEST PAIN (2) Atrial fibrillation Current Visit: No Status: Acute Code(s): I48.91 - UNSPECIFIED ATRIAL FIBRILLATION Qualifiers: Atrial fibrillation type: persistent (3) Diastolic CHF, acute Current Visit: No Status: Acute Code(s): I50.31 - ACUTE DIASTOLIC ( CONGESTIVE) HEART FAILURE (4) COPD (chronic obstructive pulmonary disease) Current Visit: No Status: Chronic Qualifiers: COPD type: unspecified COPD Qualified Code(s): J44.9 - Chronic obstructive pulmonary disease, unspecified (5) HLD (hyperlipidemia) Current Visit: No Status: Chronic Code(s): E78.5 - HYPERLIPIDEMIA, UNSPECIFIED Qualifiers: Hyperlipidemia type: unspecified Qualified Code(s): E78.5 - Hyperlipidemia , unspecified (6) HTN (hypertension) Current Visit: No Status: Chronic Code(s): I10 - ESSENTIAL (PRIMARY) HYPERTENSION Qualifiers: Hypertension type: essential hypertension Qualified Code(s): I10 - Essential (primary) hypertension (7) Hypothyroidism Current Visit: No Status: Chronic Code(s): E03.9 - HYPOTHYROIDISM, UNSPECIFIED (8) diabetes mellitus type 2 Current Visit: No Status: Chronic - Plan 89yo CF with h/o COPD, Afib with pacemaker, CHF, DMII, and CKII presents with atypical chest pain. #Atypical Chest Pain - Pt had episode of brief chest pain prior to admission. Reports like pacemaker was shocking her. Pt not having pain at time of admission. - HR stable. Pt in afib rate controlled by pacemaker - Trop indeterminate at .06. Will trend trop. - Pt has hx of diastolic HF. CXR shows somes signs of fluid overload. No edema noted on physical exam. Will check BNP and get ECHO. Last ECHO done in hospital was back in 2017. - Will consult cards as patient recently had cardiac related admission for RVR back in july. Follow recs # HTN Urgency - Bp elevated to 180-190. Could be contributing to chest pain. - Will continue home meds - Hydralazine IV prn for elevated BP as needed. #Mass on CXR - 2.5cm in size, mass vs infiltrate. No s/s of pneumonia - smoking history - consider CT for better evaluation # Rate-controlled A.fib - Rate controlled with pacemaker - Continue home anticoagulation #COPD - No signs of acute exacerbation at this time. O2 sats stable - duonebs prn as needed. #DMII - Mild SSI - Accuchecks ACHS # HLD -continue home meds # Hypothyroidism -continue home meds Code: DNR - spoke with pt and adult children at beside Diet: NPO IVF: SL VTE: home Xarelto PCP: Jonah - PCP Disposition/LOS: Admit to tele for atypical chest pain. CXR concerning for mass, consider CT for further eval. HTN urgency, restart home meds with prn. Anticipate hospitalization < 48 hours. FMR H&P: Upper Level - Pertinent history I was present with the media relations intern for the HPI. I scribed the above document and made edits as needed. See above for HPI. - Pertinent findings General: Pt A&Ox3, resting comfortably in bed. Denies any chest pain Cardio: Irregularly irregular, no murmurs or gallops. Chest NTTP. Resp: Some mild rales noted bilaterally. No wheezes or crackles. Ext: No edema noted in ext bilaterally. - Plan Date/Time: 09/06/19 0122 I, Ye Gutierrez, PGY-3, have evaluated this patient and agree with findings/ plan as outlined by media relations intern resident. Pertinent changes/additions are listed here. See above for detailed plan. Edits were made as needed. At this time pt we are admitting pt for Atypical Chest Pain. Pt has hx of A.fib. Currently rate controlled with pacemaker. No abnormalities noted on EKG. Trop indeterminate. Will continue to trend. Will check BNP. Pt X-ray suggest fluid overload. No signs of edema on physical exam. Will check BNP. Will get ECHO as last one done in hospital was 2017. Will consult cards as patient has had recent admissions for cardiac reasons. Pt BP also elevated to 180-190. Pain could be form some HTN urgency. Will continue home BP meds. Will give IV prn hydralazine as needed. Will admit to tele obs for continued monitoring. See above for detailed plan. Addendum - Attending - Attending Attestation Date/Time: 09/06/19 1121 I personally evaluated the patient and discussed the management with Dr. Davis. I agree with the History, Examination, Assessment and Plan documented above with any addition or exceptions noted below. The patient's enzymes have down-trended. Cardiology is consulted. Will also get a CT chest to further evaluate possible mass. Procal is pending. Restart home meds. Giving 1 dose of IV lasix and will re-evaluate.
[2019-09-06 01:36] LABS: Troponin I 0.042 ng/mL (< 0.028)
[2019-09-06] MEDS ORDERED: Ondansetron ODT 4 MG TAB SL PRN (02:10)
[2019-09-06] MEDS ORDERED: Ondansetron PF 4 MG/2 ML Vial IVP PRN ×2 (02:10→02:27)
[2019-09-06] MEDS ORDERED: Acetaminophen 325 MG TAB PO PRN ×2 (02:10→02:27)
[2019-09-06] MEDS ORDERED: HYDROcodone/Acetaminophen 5/325 mg Tablet PO PRN ×2 (02:10)
[2019-09-06 02:14] VITALS: BMI 27.3
[2019-09-06] MEDS ORDERED: Calcium Carbonate 500 MG ChewTAB PO PRN (02:27)
[2019-09-06] MEDS ORDERED: Senokot S 8.6-50 MG TAB PO PRN (02:27)
[2019-09-06] MEDS ORDERED: Acetaminophen 650 MG Suppository PR PRN (02:27)
[2019-09-06] MEDS ORDERED: Ondansetron ODT 4 MG TAB PO PRN (02:27)
[2019-09-06] MEDS ORDERED: Bisacodyl 5 MG TAB PO PRN (02:27)
[2019-09-06] MEDS ORDERED: hydrALAZINE 20 MG/ML VIAL SLOW IVP PRN (02:27)
[2019-09-06 03:40] LABS: Band 1 % (5-11); Eosinophils 2 % (0-10); Hemoglobin 9.1 g/dL (12.0-16.0); Lymphocytes 40 % (21-51); MDiff Complete? YES; Mean Corpuscular HGB CONC 30.8 g/dL (32.0-36.0); Mean Corpuscular Hemoglobin 22.3 pg (27.0-31.0); Mean Corpuscular Volume 72.4 fL (78.0-98.0); Mean Platelet Volume 9.2 fL (7.4-10.4); Monocytes 6 % (0-10); Neutrophil 51 % (42-75); Nucleated RBC 1 % (0); Platelet Count 250 thou/uL (130-400); Platelet Morphology Comment Appears Adequate; RBC Distribution Width 16.9 % (11.5-14.5); Red Blood Cell (RBC) Count 4.09 mill/uL (4.20-5.40); White Blood Cell (WBC) Count 7.1 thou/uL (4.8-10.8)
[2019-09-06 03:42] LABS: ALT (SGPT) 16 U/L (8-55); AST (SGOT) 27 U/L (5-34); Albumin 3.3 g/dL (3.4-4.8); Alkaline Phosphatase 107 U/L (40-110); Anion Gap 11 mmol/L (10-20); BUN (Urea Nitrogen) 21 mg/dL (9.8-20.1); Bilirubin, Total 0.5 mg/dL (0.2-1.2); Calc. Creatinine Clearance 49 mL/min (70-130); Calcium 9.1 mg/dL (7.8-10.44); Carbon Dioxide 28 mmol/L (23-31); Chloride 104 mmol/L (98-107); Estimated GFR-MDRD 63; Globulin 3.2 g/dL (2.4-3.5); Glucose 125 mg/dL (83-110); Potassium 3.7 mmol/L (3.5-5.1); Protein, Total 6.5 g/dL (6.0-8.3); Sodium 139 mmol/L (136-145)
[2019-09-06 03:52] LABS: Troponin I 0.049 ng/mL (< 0.028)
[2019-09-06] MEDS: Levothyroxine Sodium 50 MCG TAB PO SCH (05:55)
[2019-09-06] MEDS: Digoxin 0.125 MG TAB PO SCH (08:29)
[2019-09-06] MEDS: Carvedilol 25 MG TAB PO SCH ×2 (08:29→18:08)
[2019-09-06] MEDS: Famotidine/PF 20 mg/2ml Vial SLOW IVP SCH (08:30)
[2019-09-06] MEDS: Escitalopram Oxalate 10 mg Tablet PO SCH (08:30)
[2019-09-06] MEDS: Lisinopril 5 MG TAB PO SCH (08:30)
[2019-09-06] MEDS ORDERED: Dextrose 50% Abboject 50 ML SYRINGE SLOW IVP PRN (08:32)
[2019-09-06] MEDS ORDERED: Dextrose 5% in Water 1,000 ML IV PRN (08:32)
[2019-09-06] MEDS ORDERED: HumaLOG 300 UNITS/3 ML VIAL SC PRN ×2 (08:32)
[2019-09-06] MEDS ORDERED: Furosemide 20 MG/2 ML VIAL SLOW IVP SCH (08:45)
--- NOTE | 2019-09-06 11:34 | CT ---
CT OF THE CHEST WITH IV CONTRAST INDICATION: Lung mass COMPARISON: Chest radiograph dated September 05, 2019 and a CTA of the chest dated March 19, 2013 FINDINGS: CHEST: Lungs: There is scattered emphysema. There are small bilateral pleural effusions. Corresponding opaci ty seen on the comparison chest radiograph is a 3.7 cm platelike region of opacity that underlies the right major and right minor fissure, suspicious for an area of subpleural subsegmental atelectasi s. Similar appearing opacity is seen within the anterior aspect of the right upper lobe measuring 1.4 cm on image 28 of series 3. There are scattered moderate centrilobular emphysema. There are areas of tree-in-bud type nodularity within the right middle lobe and portions of the right lower lobe. There areas of subsegmental volume loss involving the lingula. Small subpleural pulmonary nodule seen along the right major fissure and the lateral aspect of the anterior lateral right lower lobe are stable since 2013 are likely benign. Pleural space: Small bilateral pleural effusions Mediastinum: There are nonspecific mildly prominent lymph nodes within the mediastinum. There is subc arinal lymph node measuring 1.4 cm. There is a right tracheobronchial lymph node measuring 1.4 cm. There is a right paratracheal lymph node measuring 1.5 cm. Upper abdomen:There is a moderate size hiatal hernia. There is a stable right hepatic lobe cyst Osseous structures: No acute osseous abnormality. No destructive osteolytic or osteoblastic lesion i s identified. There is scattered degenerative and osteoarthritic changes. Soft tissues:There is a left subclavian pacemaker overlying the left chest wall. IMPRESSION: 1. The nodular opacity seen on the comparison chest radiograph corresponds to an area of suspected roy bpleural subsegmental atelectasis. 2 separate areas are seen within the right upper lobe. One is seen within the posterior segment of the right upper lobe measuring 3.7 cm. One is seen within the an terior segment of the right upper lobe measuring 1.4 cm. Follow-up CT is recommended document resolution. This may be performed in 6-8 weeks. 2. Reticular nodularity within the right middle lobe and right lower lobe is suspicious for a respira tory bronchiolitis of infectious or inflammatory etiology. 3. Nonspecific mildly prominent mediastinal lymph nodes. Follow-up in 6-[address] is recommended. 4. Small bilateral pleural effusions 5. Moderate emphysema
[2019-09-06] MEDS ORDERED: Iopamidol 370 76% 100 ML VIAL ONE (16:17)
[2019-09-06] MEDS: Rivaroxaban 10 MG TAB PO SCH (18:08)
--- NOTE | 2019-09-06 19:28 | PRG ---
DATE OF SERVICE: 09/06/2019 SUBJECTIVE: Ms. Finn, who was brought back for observation with chest pain. The patient recalls that it is left upper chest, where family member remembers the patient having substernal going to the left upper chest. She is pain-free now. PAST HISTORY: Chronic atrial fibrillation with previous pacemaker insertion. PHYSICAL EXAMINATION: GENERAL: This is a pleasant elderly woman. VITAL SIGNS: Blood pressure 148/60, pulse 70 and it is mostly paced. LUNGS: Clear. CARDIAC: Normal S1. Normal S2. ABDOMEN: Soft and nontender. EXTREMITIES: No edema. EKG, atrial fibrillation with appropriate pacing and sensing that the [employer] transtelephonic check was normal with good thresholds. ASSESSMENT: 1. Atypical chest pain. 2. No evidence of recent stress testing. 3. Chronic atrial fibrillation. PLAN: Stress test to be done tomorrow and if it is okay, could be released home from a cardiac standpoint. Job ID: [id number] MTDD
[2019-09-06] MEDS ORDERED: Atorvastatin Calcium 40 MG TAB PO SCH (21:00)
--- NOTE | 2019-09-07 05:36 | PDOC.FM ---
- Subjective Subjective: Pt denies any events overnight. Continues to be intermittently paced. Denies any CP or SOB. - Objective Vital Signs & Weight: Vital Signs (12 hours) Temp Pulse Resp BP Pulse Ox 09/07/19 04:25 98.5 F 68 20 141/63 H 96 09/06/19 19:17 97.9 F 61 14 152/68 H 92 L Weight Weight 67.631 kg I&O: 09/05/19 09/06/19 09/07/19 06:59 06:59 06:59 Intake Total 400 960 Output Total 1100 Balance 400 -140 Result Diagrams: 09/06/19 03:10 09/06/19 03:10 Phys Exam - Physical Examination Constitutional: NAD HEENT: moist MMs Neck: no JVD, full ROM Respiratory: no wheezing, no rales, no rhonchi, clear to auscultation bilateral Cardiovascular: no significant murmur Irreg irreg Gastrointestinal: soft, non-tender, no distention, positive bowel sounds Musculoskeletal: pulses present, edema present (2+ bilateral LE pitting edema) Neurological: normal sensation, moves all 4 limbs Psychiatric: normal affect, A&O x 3 Skin: no rash, cap refill <2 seconds Dx/Plan (1) Atypical chest pain Code(s): R07.89 - OTHER CHEST PAIN Status: Acute (2) Atrial fibrillation Code(s): I48.91 - UNSPECIFIED ATRIAL FIBRILLATION Status: Acute Qualifiers: Atrial fibrillation type: persistent (3) Diastolic CHF, acute Code(s): I50.31 - ACUTE DIASTOLIC (CONGESTIVE) HEART FAILURE Status: Acute (4) HLD (hyperlipidemia) Code(s): E78.5 - HYPERLIPIDEMIA, UNSPECIFIED Status: Chronic Qualifiers: Hyperlipidemia type: unspecified Qualified Code(s): E78.5 - Hyperlipidemia , unspecified (5) HTN (hypertension) Code(s): I10 - ESSENTIAL (PRIMARY) HYPERTENSION Status: Chronic Qualifiers: Hypertension type: essential hypertension Qualified Code(s): I10 - Essential (primary) hypertension (6) diabetes mellitus type 2 Status: Chronic - Plan Plan: 89yo CF with h/o COPD, Afib with pacemaker, CHF, DMII, and CKII presents with atypical chest pain. #Atypical Chest Pain - Pt had episode of brief chest pain prior to admission. Reports like pacemaker was shocking her. Pt not having pain at time of admission. - HR stable. Pt in afib rate controlled by pacemaker - Trop trended down, remaining in indeterminate level - Pt has hx of diastolic HF. CXR shows somes signs of fluid overload. No edema noted on physical exam - Last ECHO done in hospital was back in 2017 - yesterday's echo showed EF 55-60%, severely dilated left atrium and severely elevated pulmonary artery pressures - BNP 582 - Cards consulted, will perform stress test today # HTN Urgency - Bp elevated to 180-190. Could be contributing to chest pain. - Will continue home meds - Hydralazine IV prn for elevated BP as needed. #Mass on CXR - 2.5cm in size, mass vs infiltrate. No s/s of pneumonia - f/u CT showed 2 areas of atelectasis corresponding with CXR findings as well as mildly prominant mediastinial lymph nodes - rec f/u CT in 6-8 weeks to document resolution - + smoking history # Rate-controlled A.fib - Rate controlled with pacemaker - Continue home anticoagulation #COPD - No signs of acute exacerbation at this time. O2 sats stable - duonebs prn as needed. #DMII - Mild SSI - Accuchecks ACHS # HLD -continue home meds # Hypothyroidism -continue home meds Code: DNR - spoke with pt and adult children at beside Diet: NPO IVF: SL VTE: home Xarelto PCP: Jonah - PCP
[2019-09-07] MEDS: Levothyroxine Sodium 50 MCG TAB PO SCH (05:52)
[2019-09-07] MEDS ORDERED: Torsemide 20 MG TAB PO SCH (09:00)
[2019-09-07] MEDS: Famotidine/PF 20 mg/2ml Vial SLOW IVP SCH (10:03)
[2019-09-07] MEDS: Digoxin 0.125 MG TAB PO SCH (10:03)
[2019-09-07] MEDS: Escitalopram Oxalate 10 mg Tablet PO SCH (10:03)
[2019-09-07] MEDS: Carvedilol 25 MG TAB PO SCH ×2 (10:03→17:29)
[2019-09-07] MEDS: Lisinopril 5 MG TAB PO SCH (10:04)
[2019-09-07] MEDS ORDERED: Aspirin 81 mg Enteric Coated Tablet PO SCH (11:45)
--- NOTE | 2019-09-07 12:12 | PRG ---
DATE OF SERVICE: 09/07/2019 SUBJECTIVE: Ms. Finn went down for stress testing today, but she was unable to do that. They tried to elevate her arms for the camera, but that was very uncomfortable to her. Therefore, they put by her side and tucked her arms, but she became very upset and the nuclear medicine tech indicated the patient became progressively more upset when they tried to either put her arms above her head or by her side, asked the procedure would be stopped, said she that she should be taken back to the room. She did not wish to have this done. The patient became as mentioned increasingly upset. The nuclear medicine tech tried to calm the patient, but she declined to proceed with that, so this could not do that and made her very upset. On examination, she is resting comfortably now. OBJECTIVE: VITAL SIGNS: Her blood pressure is 156/70 and pulse 70. LUNGS: Clear. CARDIAC: Normal S1 and normal S2. ASSESSMENT: 1. Chronic atrial fibrillation. 2. Chest pain atypical for angina with indeterminate troponin levels with a peak troponin low indeterminate at 0.061. 3. Mild anemia. PLAN: 1. Continue digoxin and carvedilol. 2. Continue lisinopril. 3. Continue Pepcid. 4. Follow with Dr. Romero as an outpatient. The patient does not seem to be able do a stress test. Initially, I was considering adding aspirin, but I see she is anemic and I reluctant to give anti-platelet drugs on top of Xarelto with this anemia, especially the very low MCV of 72, suspect she is maybe iron deficient. 5. We will go ahead and order iron studies to see if she could benefit from intravenous iron infusion. Job ID: [id number]
[2019-09-07 12:47] LABS: Iron 22 ug/dL (50-170); Iron Binding Capacity, Total 404 mcg/dL (265-497)
--- NOTE | 2019-09-07 15:25 | PRG ---
DATE OF SERVICE: 09/07/2019 Please see the note from Dr. Christo Bland for which I agree. This is an 89-year-old patient who came in with chest pain. Echo showed pulmonary hypertension, large left atrium, but sounds like normal ejection fraction. Stress test is happening today. She is asymptomatic and exam was completely normal, and if the stress test is normal read by Cardiology, likely will be able to be discharged. Job ID: [id number]
[2019-09-07 15:36] VITALS: BP 150/65; TEMP 96.7
[2019-09-07] MEDS: Rivaroxaban 10 MG TAB PO SCH (17:29)
[2019-09-08] MEDS ORDERED: Iron, Sodium Ferric Gluconate 250 MG in Sodium Chloride 0.9% 100 ML IVPB SCH (09:00)
[2019-09-08] MEDS ORDERED: Aspirin 81 mg Enteric Coated Tablet PO SCH (09:00)
--- NOTE | 2019-09-09 10:38 | DIS ---
DATE OF ADMISSION: 09/06/2019 DATE OF DISCHARGE: 09/07/2019 RESIDENT: Christo Bland DO CONSULT: Cardiology, Dr. Michelle Wasserman. PROCEDURES PERFORMED: None. PRIMARY DIAGNOSES: Atypical chest pain. Atrial fibrillation. Diastolic heart failure. SECONDARY DIAGNOSES: Hyperlipidemia, hypertension, type 2 diabetes. DISCHARGE MEDICATIONS: 1. Escitalopram 10 mg daily. 2. Levothyroxine 50 mcg daily. 3. Lisinopril 5 mg daily. 4. Potassium chloride 20 mEq p.o. b.i.d. 5. Atorvastatin 80 mg p.o. at bedtime. 6. Xarelto 20 mg daily. 7. Torsemide 20 mg daily. 8. Coreg 25 mg b.i.d. 9. Digoxin 0.125 mg daily. 10. Ferrous sulfate 325 mg daily. HISTORY OF PRESENT ILLNESS AND HOSPITAL COURSE: An 89-year-old female with history of COPD, atrial fibrillation with pacemaker, CHF, diabetes mellitus type 2, and CKD, stage 2, presents with atypical chest pain. The patient reported chest pain earlier in the night that was substernal and located underneath her pacemaker. Her daughter took her blood pressure and reported that it was 180 systolic. The patient denied any nausea, vomiting, sweating, but did note some radiation of the pain to her neck. The patient denied ever having pain like this before. The patient stated that she felt that her pacemaker was shocking her. The patient's EKG was negative for any acute ST or T-wave changes. She was admitted to telemetry for continued monitoring and workup. The patient's troponins were trended and remained indeterminate levels x3, likely due to her chronic kidney disease. The patient received a chest CT which showed nodular opacities in 2 separate areas as well as perihilar lymphadenopathy. It was recommended that the patient have a followup CT in 6-8 weeks to confirm resolution and non progression of these findings. This was reiterated to the patient and she expressed understanding. The patient then had an echocardiogram that showed normal size of her left ventricle as well as an EF estimated at 55% to 60%. She was found to have a severely dilated left atrium and severely elevated pulmonary artery pressures. The patient was seen by Cardiology, Dr. Wasserman on the day of her discharge. She stated to him that she did not wish to have the stress test done and when attempted, she became very upset. The risks of not performing the study were discussed with the patient and she agreed to proceed without it. Dr. Wasserman suggested the patient can continue her digoxin and carvedilol as well as her lisinopril. The patient is to follow up with Nick as an outpatient. Dr. Wasserman decided not to add aspirin to the patient's home regimen due to her anemia and low MCV. The patient was started on oral iron supplementation and had iron studies drawn. These resulted with a low iron and normal ferritin level suggestive of anemia of chronic disease. The patient was made aware of this and agreed to follow up with her primary care physician. At the time of discharge, all patient's questions were answered and she agreed to proceed with the plan of care. DISPOSITION: Stable. DISCHARGE INSTRUCTIONS: 1. Location: Home. 2. Diet: Heart healthy. 3. Activity: As tolerated. No restrictions. 4. Followup: Follow up with PCP, Dr. Mckenzie within 7 days, follow up with Dr. Romero, Cardiology, as directed. Job ID: [id number]
== END 2019-09-07 17:59 | disposition home or self-care (01) ==
LOC: ERS 21:08 → 2SW 09-06 02:12
PROVIDERS: ADMIT Family Medicine; ATTEND Family Medicine
DX: R07.2 Precordial pain (principal); I48.19 Other persistent atrial fibrillation; I16.0 Hypertensive urgency; I13.0 Hypertensive heart and chronic kidney disease with heart failure and stage 1 through stage 4 chronic kidney disease, or unspecified chronic kidney disease; E11.22 Type 2 diabetes mellitus with diabetic chronic kidney disease; N18.2 Chronic kidney disease, stage 2 (mild); I50.30 Unspecified diastolic (congestive) heart failure; E78.5 Hyperlipidemia, unspecified; J44.9 Chronic obstructive pulmonary disease, unspecified; E03.9 Hypothyroidism, unspecified; R22.2 Localized swelling, mass and lump, trunk; Z79.01 Long term (current) use of anticoagulants; Z79.899 Other long term (current) drug therapy; Z87.891 Personal history of nicotine dependence; Z66 Do not resuscitate
CPT/HCPCS: 71045; 71260; 80053 ×2; 82550; 82553; 82728; 82962 ×2; 83540; 83550; 83880; 84145; 84484 ×3; 85007; 85025; 85027; 85610; 85730; 93005; 93306; 94760; 96360; 96361; 96374; 96375; 96376; 97139 ×2; 99285; G0378 ×3; 36415; 36416; J1940; Q9967; S0028

== ENCOUNTER 2019-10-01 17:35 | Emergency (ER) | payer MEDICARE ==
--- NOTE | 2019-10-01 18:21 | RAD ---
Portable frontal chest radiograph: 10/01/2019 COMPARISON: 09/05/2019 HISTORY: Hypertension and chest pain FINDINGS: There is diffuse increased linear interstitial density with prominence of the cardiac silho uette and stable single lead transvenous pacing device. No pneumothorax, lobar consolidation, or alveolar edema. Ill-defined focal opacity in the mid right lung zone noted on the prior examination i s no longer visualized. There is atherosclerotic calcification of the aortic arch. IMPRESSION: Chronic findings as described above. No acute findings are seen.
[2019-10-01] MEDS ORDERED: Nitroglycerin 0.4 MG TAB 1 EACH ONE (18:32)
[2019-10-01 18:33] LABS: #Eosinphils 0.1 thou/uL (0.0-0.7); #Lymphocytes 2.3 thou/uL (1.20-3.40); #Neutrophils 4.5 thou/uL (1.40-6.50); %Basophils 0.6 % (0.0-1.0); %Eosinophils 1.4 % (0.0-10.0); %Lymphocytes 29.5 % (21.0-51.0); %Monocytes 12.2 % (0.0-10.0); %Neutrophils 56.3 % (42.0-75.0); Hemoglobin 10.6 g/dL (12.0-16.0); Mean Corpuscular HGB CONC 30.3 g/dL (32.0-36.0); Mean Corpuscular Hemoglobin 22.8 pg (27.0-31.0); Mean Corpuscular Volume 75.3 fL (78.0-98.0); Mean Platelet Volume 9.7 fL (7.4-10.4); Platelet Count 273 thou/uL (130-400); RBC Distribution Width 18.9 % (11.5-14.5); Red Blood Cell (RBC) Count 4.67 mill/uL (4.20-5.40); White Blood Cell (WBC) Count 7.9 thou/uL (4.8-10.8)
[2019-10-01 18:57] LABS: ALT (SGPT) 17 U/L (8-55); AST (SGOT) 30 U/L (5-34); Albumin 3.9 g/dL (3.4-4.8); Alkaline Phosphatase 124 U/L (40-110); Anion Gap 12 mmol/L (10-20); BUN (Urea Nitrogen) 14 mg/dL (9.8-20.1); Bilirubin, Total 0.6 mg/dL (0.2-1.2); CK (CPK) 51 U/L (29-168); Calc. Creatinine Clearance 0 mL/min (70-130); Calcium 9.7 mg/dL (7.8-10.44); Carbon Dioxide 30 mmol/L (23-31); Chloride 103 mmol/L (98-107); Estimated GFR-MDRD 64; Globulin 3.3 g/dL (2.4-3.5); Glucose 109 mg/dL (83-110); Protein, Total 7.2 g/dL (6.0-8.3); Sodium 141 mmol/L (136-145)
[2019-10-01 19:17] LABS: CKMB 1.5 ng/mL (0-6.6)
[2019-10-01] MEDS ORDERED: Ondansetron PF 4 MG/2 ML Vial ONE (20:27)
[2019-10-01 20:28] LABS: Digoxin 1.11 ng/mL (0.8-2.0)
[2019-10-01] MEDS ORDERED: Morphine 2 MG/ML SYRINGE ONE (20:30)
--- NOTE | 2019-10-01 21:19 | RAD ---
Abdomen 2 views: 10/01/2019 HISTORY: Pain FINDINGS: Cardiac silhouette is prominent. Single lead transvenous pacing device present. Upright nick ging demonstrates no free intraperitoneal air. The bowel gas pattern appears nonobstructed. There is degenerative change involving bilateral hips and the lumbar spine. IMPRESSION: No free intraperitoneal air or evidence of small bowel obstruction.
[2019-10-01 21:55] LABS: Troponin I 0.061 ng/mL (< 0.028)
== END 2019-10-01 22:29 | disposition home or self-care (01) ==
LOC: ERS 17:35
DX: R07.89 Other chest pain (principal); J44.9 Chronic obstructive pulmonary disease, unspecified; E11.9 Type 2 diabetes mellitus without complications; E03.9 Hypothyroidism, unspecified; E78.5 Hyperlipidemia, unspecified; I13.0 Hypertensive heart and chronic kidney disease with heart failure and stage 1 through stage 4 chronic kidney disease, or unspecified chronic kidney disease; E11.22 Type 2 diabetes mellitus with diabetic chronic kidney disease; N18.2 Chronic kidney disease, stage 2 (mild); I50.9 Heart failure, unspecified; F41.9 Anxiety disorder, unspecified; F32.9 Major depressive disorder, single episode, unspecified; I48.91 Unspecified atrial fibrillation; Z87.891 Personal history of nicotine dependence; Z79.899 Other long term (current) drug therapy
CPT/HCPCS: 36415; 71045; 74019; 80053; 80162; 82550; 82553; 83880; 84484; 85025; 93005; 96374; 96375; J2270; J2405

== ENCOUNTER 2019-11-07 18:06 | Inpatient (IN) | payer MEDICARE ==
[2019-11-07 18:55] LABS: Hemoglobin 12.8 g/dL (12.0-16.0); Mean Corpuscular HGB CONC 31.2 g/dL (32.0-36.0); Mean Corpuscular Hemoglobin 24.3 pg (27.0-31.0); Mean Corpuscular Volume 77.7 fL (78.0-98.0); Mean Platelet Volume 9.7 fL (7.4-10.4); Platelet Count 263 thou/uL (130-400); RBC Distribution Width 18.9 % (11.5-14.5); Red Blood Cell (RBC) Count 5.27 mill/uL (4.20-5.40)
--- NOTE | 2019-11-07 19:05 | RAD ---
ONE VIEW CHEST: 11/07/19 COMPARISON: 10/10/19 HISTORY: Cough. Difficulty breathing. FINDINGS: Cardiomegaly. Atherosclerosis of the aorta. Stable left sided single lead transvenous pacemaker. Deputy Sheriff/Investigator navneet changes of the lung parenchyma, without consolidation or mass. No pneumothorax. No pleural effusi on. No osseous abnormalities. IMPRESSION: 1. Atherosclerosis. Chronic changes. 2. Cardiomegaly. POS: PPP
[2019-11-07 19:10] LABS: ALT (SGPT) 17 U/L (8-55); AST (SGOT) 38 U/L (5-34); Albumin 3.8 g/dL (3.4-4.8); Alkaline Phosphatase 154 U/L (40-110); Anion Gap 17 mmol/L (10-20); BUN (Urea Nitrogen) 15 mg/dL (9.8-20.1); Bilirubin, Total 0.8 mg/dL (0.2-1.2); Calc. Creatinine Clearance 0 mL/min (70-130); Calcium 9.1 mg/dL (7.8-10.44); Carbon Dioxide 24 mmol/L (23-31); Chloride 101 mmol/L (98-107); Estimated GFR-MDRD 54; Globulin 4.2 g/dL (2.4-3.5); Glucose 137 mg/dL (83-110); Sodium 137 mmol/L (136-145)
[2019-11-07 19:14] LABS: Band 2 % (5-11); Hypochromia SLIGHT = 6-15 cells (100X) (0-5/hpf); Lymphocytes 7 % (21-51); MDiff Complete? YES; Microcytosis SLIGHT = 6-15 cells (100X) (0-5/hpf); Monocytes 7 % (0-10); Neutrophil 82 % (42-75); Ovalocytes SLIGHT = 2-5 cells (100X) (0-1/hpf); Platelet Morphology Comment Appears Adequate; Polychromasia SLIGHT = 2-3 cells (100X) (0-2/hpf); Reactive Lymphocytes 2 % (0-10); Target Cells SLIGHT = 2-5 cells (100X) (0-1/hpf); Tear Drops SLIGHT = 2-5 cells (100X) (0-1/hpf)
[2019-11-07 19:17] LABS: Troponin I 0.111 ng/mL (< 0.028)
[2019-11-07] MEDS ORDERED: cefTRIAXone\\ROCEPHIN 1 GM VIAL ONE (19:29)
[2019-11-07] MEDS ORDERED: Azithromycin 500 MG VIAL ONE (19:30)
[2019-11-07 19:31] LABS: Bacteria/HPF None Seen HPF (None Seen); Bilirubin Negative (Negative); Blood, Urine Negative (Negative); Clarity Clear (Clear); Glucose, Urine (Dipstick) Normal (Negative); Leukocyte 25 Leu/uL (Negative); Nitrite Negative (Negative); Protein, Urine (Dipstick) Negative (Neg-Trace); RBC/HPF 0-3 HPF (0-3); Squamous Epithelial 0-3 HPF (0-3); Urobilinogen Normal mg/dL (Less than 2); WBC/HPF 0-3 HPF (0-3)
[2019-11-07] MEDS ORDERED: Aspirin Chewable 81 MG TAB ONE (19:41)
--- NOTE | 2019-11-07 19:51 | PDOC.FPRHP ---
- History of Present Illness Chief Complaint: persistent cough History of Present Illness: Ms Finn is an 89 yo F who has had ongoing cough w/ sputum production for over week or so. Went to her PCP last week with cough and was advised to take OTC antitussives. These did not help. Cough has continued and is productive of yellow/green/white sputum. No chest pain, no SOB. Daughter reports pt has had decreased appetite, decreased fluid intake, has been contreras/irritable, and is not wanting to eat foods that are not soft or pureed. Swallowing function has remained intact. Otherwise, daughter reports pt was having some hallucinations earlier in the week which is typical for patient when pt is sick. ED Course: Received 1L bolus NS, azithromycin, rocephin. - Allergies/Adverse Reactions Allergies Allergy/AdvReac Type Severity Reaction Status Date / Time No Known Allergies Allergy Verified 10/06/19 10:12 - Home Medications Medication Instructions Recorded Confirmed Type Escitalopram Oxalate 10 mg PO DAILY 09/12/17 11/07/19 History Levothyroxine Sodium 50 mcg PO DAILY 09/12/17 11/07/19 History Lisinopril 5 mg PO DAILY 09/12/17 11/07/19 History Potassium Chloride 20 meq PO BID 09/12/17 11/07/19 History Atorvastatin Calcium [Lipitor] 80 mg PO HS 30 Days #60 tab 09/14/17 11/07/19 Rx Torsemide 20 mg PO DAILY 07/29/19 11/07/19 History Carvedilol [Coreg] 25 mg PO BID-WM #60 tab 07/31/19 11/07/19 Rx Digoxin [Lanoxin] 0.125 mg PO DAILY #30 tab 07/31/19 11/07/19 Rx Ferrous Sulfate 325 mg PO DAILY 30 Days #30 tablet 09/07/19 11/07/19 Rx Calcium Carb/Vitamin D3/Vit K1 1 each PO DAILY 10/06/19 11/07/19 History [Viactiv 650 mg-12.5 Mcg Chew] Cholecalciferol (Vitamin D3) 1,000 unit PO HS 10/06/19 11/07/19 History [Vitamin D3] [place]-3 Fatty Acids/Fish Oil [Fish 1 cap PO DAILY 10/06/19 11/07/19 History Oil 1,200 mg Softgel] Aspirin [Adult Aspirin Regimen] 81 mg PO DAILY #30 tablet. 10/10/19 11/07/19 Rx Pantoprazole [Protonix] 40 mg PO BID #60 tab 10/10/19 11/07/19 Rx - History PMHx: atrial fibrillation w/ pacemaker in place, hypothyroidism, anxiety, COPD not on home O2, hyperlipidemia, hypertension, diabetes, history of bleeding ulcer so no longer takes anticoagulant PSHx: appendectomy, hysterectomy, skin cancer FHx: Father: brain cancer Social: Remote tobacco abuse, 10 pack-year history, no alcohol or drug use - Review of Systems General: reports: weight/appetite/sleep changes. denies: fever/chills, fatigue Eyes: denies: vision changes ENT: denies: nasal congestion, rhinorrhea Respiratory: reports: cough. denies: congestion, shortness of breath, exercise intolerance Cardiovascular: denies: chest pain, palpitation, edema, orthopnea Gastrointestinal: denies: nausea, vomiting, diarrhea, constipation, abdominal pain Genitourinary: denies: dysuria Skin: denies: rashes Musculoskeletal: denies: pain Neurological: denies: syncope, seizure Psychological: reports: anxiety. denies: depression - Vital signs BP: 151/62, Pulse: 99, Resp: 19, O2 sat: 96 on (Room Air), Time: 11/07/2019 19: 17. - Physical Exam Constitutional: NAD, awake, alert and oriented, well developed HEENT: normocephalic and atraumatic, PERRLA, conjunctiva clear, no scleral icterus, grossly normal vision, grossly normal hearing, MMM Neck: supple, no thyromegaly Heart: no edema -Heart: irregularly irregular rate and rhythm -Lungs: mild scattered expiratory wheeze over RUL, otherwise CTA. No respiratory distress Abdomen: soft, non-tender, no masses/distention Musculoskeletal: normal structure Neurological: no focal deficit Skin: no rash/lesions Heme/Lymphatic: no unusual bruising or bleeding, no purpura, no petechia Psychiatric: normal mood and affect FMR H&P: Results - Labs Result Diagrams: 11/07/19 18:21 11/07/19 18:21 Lab results: WBC 20.0 thou/uL (4.8-10.8) H 11/07/19 18:21 Hgb 12.8 g/dL (12.0-16.0) 11/07/19 18:21 Hct 41.0 % (36.0-47.0) 11/07/19 18:21 MCV 77.7 fL (78.0-98.0) L 11/07/19 18:21 Plt Count 263 thou/uL (130-400) 11/07/19 18:21 Band Neuts % (Manual) 2 % (5-11) L 11/07/19 18:21 Sodium 137 mmol/L (136-145) 11/07/19 18:21 Potassium 5.0 mmol/L (3.5-5.1) 11/07/19 18:21 Chloride 101 mmol/L (98-107) 11/07/19 18:21 Carbon Dioxide 24 mmol/L (23-31) 11/07/19 18:21 BUN 15 mg/dL (9.8-20.1) 11/07/19 18:21 Creatinine 0.97 mg/dL (0.6-1.1) 11/07/19 18:21 Glucose 137 mg/dL (83-110) H 11/07/19 18:21 Lactic Acid 2.0 mmol/L (0.5-2.2) 11/07/19 18:21 Calcium 9.1 mg/dL (7.8-10.44) 11/07/19 18:21 Total Bilirubin 0.8 mg/dL (0.2-1.2) 11/07/19 18:21 AST 38 U/L (5-34) H 11/07/19 18:21 ALT 17 U/L (8-55) 11/07/19 18:21 Alkaline Phosphatase 154 U/L (40-110) H 11/07/19 18:21 Serum Total Protein 8.0 g/dL (6.0-8.3) 11/07/19 18:21 Albumin 3.8 g/dL (3.4-4.8) 11/07/19 18:21 Urine Ketones Negative mg/dL (Negative) 11/07/19 19:16 Urine Blood Negative (Negative) 11/07/19 19:16 Urine Nitrite Negative (Negative) 11/07/19 19:16 Ur Leukocyte Esterase 25 Juliet/uL (Negative) 11/07/19 19:16 Urine RBC 0-3 HPF (0-3) 11/07/19 19:16 Urine WBC 0-3 HPF (0-3) 11/07/19 19:16 Ur Squamous Epith Cells 0-3 HPF (0-3) 11/07/19 19:16 Urine Bacteria None Seen HPF (None Seen) 11/07/19 19:16 - EKG Interpretation EKG: a fib, chronic - Radiology Interpretation Chest x-ray Status: report reviewed by me (neg) FMR H&P: A/P - Problem List (1) SIRS (systemic inflammatory response syndrome) Current Visit: Yes Status: Acute Code(s): R65.10 - SIRS OF NON-INFECTIOUS ORIGIN W/O ACUTE ORGAN DYSFUNCTION (2) Atrial fibrillation Current Visit: No Status: Acute Code(s): I48.91 - UNSPECIFIED ATRIAL FIBRILLATION Qualifiers: Atrial fibrillation type: persistent (3) Anxiety Current Visit: No Status: Chronic Code(s): F41.9 - ANXIETY DISORDER, UNSPECIFIED (4) COPD (chronic obstructive pulmonary disease) Current Visit: No Status: Chronic Qualifiers: COPD type: unspecified COPD Qualified Code(s): J44.9 - Chronic obstructive pulmonary disease, unspecified (5) HLD (hyperlipidemia) Current Visit: No Status: Chronic Code(s): E78.5 - HYPERLIPIDEMIA, UNSPECIFIED Qualifiers: Hyperlipidemia type: unspecified Qualified Code(s): E78.5 - Hyperlipidemia , unspecified (6) HTN (hypertension) Current Visit: No Status: Chronic Code(s): I10 - ESSENTIAL (PRIMARY) HYPERTENSION Qualifiers: Hypertension type: essential hypertension Qualified Code(s): I10 - Essential (primary) hypertension (7) Hypothyroidism Current Visit: No Status: Chronic Code(s): E03.9 - HYPOTHYROIDISM, UNSPECIFIED (8) diabetes mellitus type 2 Current Visit: No Status: Chronic - Plan 89 yo F admitted for: Suspected PNA versus other infectious etiology SIRS - pt presenting w/ cough lasting for over a week now. - CXR neg. Lung exam not impressive. - Pt w/ SIRS criteria for WBC and tachycardia, however tachycardia may be more due to a-fib than systemic response to infection - Will treat as community acquired pneumonia: continue azithromycin and ceftriaxone - Await blood cultures, urine culture. - procalcitonin pending. If low/neg, consider d/c abx and begin short course of steroids. - repeat CBC in AM - will treat cough symptomatically w/ duonebs and antitussives Dehydrated, decreased oral intake - Fluids, gentle at 100mL/hr - Dietitian consult - consider nutrition supplementation A-fib, chronic CHF Elevated troponin - pacemaker in place - monitor on telemetry - continue home meds - troponin elevated. trend. - BNP of 300. Pt does not appear fluid overloaded and has higher BNPs in past w / CHF exacerbations. Hypothyroidism COPD Anxiety Gastric ulcer - continue home meds Code: DNR Fluids: 100mL/hr LR VTE ppx: [id number] only GI ppx: already on PPI for ulcer Disposition/LOS: admit to inpatient telemetry. LOS >48 H. FMR H&P: Upper Level - Plan Date/Time: 11/07/191950 PCP: Jonah HPI: This is an 89 yo F who comes in with 1 week of cough and decreased appetite. Significant PMH includes pacemaker, a fib, hypothyroidism, HFpEF, pulm artery HTN, copd, hld, htn, dm. She lives at home with her daughter who brought her to the ER because of the persistent cough and thinking she was dehydrated from not eating or drinking much. Denies N/V/D just not hungry. Cough is productive of brown sputum at times. She does not use nebs at home and doesnt use inhaler well. Daughter also states she has been somewhat confused, doing things she wouldnt normally do. She is AxOx4 but more forgetful than usual per daughter. She ambulates with walker and is still able to get around the house without difficulty. She has a far distant smoking history, smoke about a pack per day for 10 years. Patient denies any major life stressors or feeling down. REVIEW OF SYSTEMS: Gen: no fever, chills, or sweats Neuro: denies headache Eyes: no visual changes ENT: no hearing changes, no sore throat, no congestion Resp: see hpi Card: denies CP, palpitations GI: no N/V/D, decreased appetite Heme: no easy bruising/bleeding Skin: no rash, no erythema PHYSICAL EXAMINATION: General: NAD, alert and oriented x3 HEENT: PERRLA, EOMI, normal sclera, oropharynx without erythema or exudate Neck: Supple. Full ROM. Heart/Cardiovascular System: irregularly irregular, Cap refill < 3 seconds, no rub, no murmur Lungs/Respiratory System: Exp wheeze on R side, rales appreciated right upper lobe, no crackles at bases, good air movement, no resp distress Abdomen/Gastro-Intestinal System: no abdominal tenderness, normal bowel sounds Extremities: Warm extremities. No cyanosis or edema Neuro: No gross deficits appreciated. CN 2-12 grossly intact Psychiatry: Awake, Alert and cooperative with exam Skin: No lesions, rashes, or ulcers Musculoskeletal: Full ROM A/P: # Community acquired PNA, SIRS - Abnormal lung sounds R only, COPD exacerbation possible but seems less likely - COPD documented in previous admissions - CXR no acute process, bcx taken, procal pending - WBC 20.8, tachycardic on arrival, no fever # Elevated troponin, likely demand ischemia - Trop 0.111, trend - Likely 2/2 dehydration and infection # Dehydration - Has not been eating/drinking much, denies N/V - Baseline hgb around 8, it is 12.8 today, suspect dehydration - Cr 0.97 - 20mg/kg bolus in ED, then maintenance - Gentle rehydration # Chronic Afib - rate controlled - home meds # Pulmonary a. HTN, HFpEF - EF 55-60% sep 10, BNP 320, baseline ~500 - Home meds # Hiatal hernia, HTN, HLD - Home meds Fluids: LR 100ml/hr Code status: DNR PPx: lovenox Dispo: 1-2 days, may benefit from rehab
[2019-11-07] MEDS ORDERED: Guaifenesin DM 100-10/5 ML UDCUP PO PRN (20:43)
[2019-11-07] MEDS ORDERED: Acetaminophen 325 MG TAB PO PRN (20:43)
[2019-11-07] MEDS ORDERED: Carvedilol 25 MG TAB PO SCH (22:00)
[2019-11-07 22:18] LABS: Troponin I 0.172 ng/mL (< 0.028)
[2019-11-07 23:48] VITALS: BMI 26.0
[2019-11-08] MEDS: Atorvastatin Calcium 40 MG TAB PO SCH ×2 (00:31→20:30)
[2019-11-08 00:52] LABS: Troponin I 0.141 ng/mL (< 0.028)
[2019-11-08] MEDS: Lactated Ringer's 1,000 ML IV SCH ×2 (00:53→07:15)
[2019-11-08 05:11] LABS: Anion Gap 10 mmol/L (10-20); BUN (Urea Nitrogen) 14 mg/dL (9.8-20.1); Calc. Creatinine Clearance 52 mL/min (70-130); Carbon Dioxide 24 mmol/L (23-31); Chloride 108 mmol/L (98-107); Estimated GFR-MDRD 71; Glucose 79 mg/dL (83-110); Potassium 3.9 mmol/L (3.5-5.1); Sodium 138 mmol/L (136-145)
[2019-11-08 05:14] LABS: Troponin I 0.124 ng/mL (< 0.028)
[2019-11-08 05:21] LABS: Band 3 % (5-11); Lymphocytes 14 % (21-51); MDiff Complete? YES; Mean Corpuscular HGB CONC 30.5 g/dL (32.0-36.0); Mean Corpuscular Volume 78.5 fL (78.0-98.0); Monocytes 15 % (0-10); Neutrophil 68 % (42-75); Platelet Count 194 thou/uL (130-400); Red Blood Cell (RBC) Count 4.16 mill/uL (4.20-5.40)
[2019-11-08] MEDS: Levothyroxine Sodium 50 MCG TAB PO SCH (05:26)
--- NOTE | 2019-11-08 05:42 | PDOC.FM ---
- Subjective Subjective: NAEO. Patient reports feeling much better this AM. Reports persistent cough but states it it now non-productive. Appetite has slightly improved as she was able to eat some breakfast today. - Objective MAR Reviewed: Yes Vital Signs & Weight: Vital Signs (12 hours) Temp Pulse Resp BP Pulse Ox 11/08/19 04:00 97.9 F 79 20 136/62 92 L 11/08/19 00:39 76 20 93 L 11/07/19 23:17 98.4 F 64 20 151/86 H 98 Weight Weight 64.682 kg I&O: 11/06/19 11/07/19 11/08/19 06:59 06:59 06:59 Intake Total 738 Output Total 400 Balance 338 Result Diagrams: 11/08/19 04:23 11/08/19 04:23 Radiology Reviewed by me: Yes Phys Exam - Physical Examination Constitutional: NAD HEENT: moist MMs, oral pharynx no lesions Neck: supple Respiratory: no wheezing, no rhonchi trace LLL rales on inspiration Cardiovascular: no significant murmur irregularly irregular rhythm but NL rate Gastrointestinal: soft, non-tender, no distention, positive bowel sounds Musculoskeletal: no edema Neurological: non-focal, moves all 4 limbs Psychiatric: normal affect, A&O x 3 Skin: no rash, normal turgor, cap refill <2 seconds Dx/Plan (1) SIRS (systemic inflammatory response syndrome) Code(s): R65.10 - SIRS OF NON-INFECTIOUS ORIGIN W/O ACUTE ORGAN DYSFUNCTION Status: Resolved (2) Atrial fibrillation Code(s): I48.91 - UNSPECIFIED ATRIAL FIBRILLATION Status: Acute Qualifiers: Atrial fibrillation type: persistent (3) Anxiety Code(s): F41.9 - ANXIETY DISORDER, UNSPECIFIED Status: Chronic (4) COPD (chronic obstructive pulmonary disease) Status: Chronic Qualifiers: COPD type: unspecified COPD Qualified Code(s): J44.9 - Chronic obstructive pulmonary disease, unspecified (5) HLD (hyperlipidemia) Code(s): E78.5 - HYPERLIPIDEMIA, UNSPECIFIED Status: Chronic Qualifiers: Hyperlipidemia type: unspecified Qualified Code(s): E78.5 - Hyperlipidemia , unspecified (6) HTN (hypertension) Code(s): I10 - ESSENTIAL (PRIMARY) HYPERTENSION Status: Chronic Qualifiers: Hypertension type: essential hypertension Qualified Code(s): I10 - Essential (primary) hypertension - Plan Plan: SIRS 2/2 Suspected PNA vs. viral bronchitis vs. influenza, resolved - Pt presented w/ cough lasting for over a week now. - CXR neg & Lung exam not impressive. UA negative but blood & urine Cxs pending as pt met SIRS criteria on admission 2/2 leukocytosis and tachycardia. - Started tx w/ azithromycin and ceftriaxone but procal low at 0.12 suggesting most likely etiology is viral. Flu swab negative. - Will consider d/c abx or continuing only steroid & PO abx given h/o underlying COPD. - Continue symptomatic management w/ duonebs, antitussives & antipyretics. Moderate volume depletion, improving - Fluids, gentle at 100mL/hr - Dietitian consult - consider nutrition supplementation Elevated troponin - Troponin elevated on admission but trended down over course of hospital stay. - No need for continued telemetry monitoring as a fib is controlled with pacer. A-fib, chronic w/ pacer - Continue home meds & tele monitoring HFpEF (55-60% from Aug) - Aware. BNP of 300 on admission but Pt does not appear fluid overloaded and has had higher BNPs in past per chart review. - Continue home meds. - HH diet & strict I&Os. COPD - Aware, does not appear to be in acute exacerbation. - Continue home meds & BRI Duonebs. Iron Deficiency Anemia - Hgb WNLs @ 12.8 on admission. Down to 10.0 this AM but likely dilutional 2/2 IVFs given since admission. Will continue to monitor. - Continue home meds. Hypothyroidism - Continue home meds. Anxiety - Continue home meds. h/o Gastric ulcer - continue home meds Code: DNR Fluids: 100mL/hr LR VTE ppx: ASA 81 only GI ppx: already on PPI for ulcer Dispo: Will transfer to medical floor & consider stopping abx as cough and SIRS most likely viral in etiology. Addendum - Attending - Attending Attestation Date/Time: 11/08/19 3068 I personally evaluated the patient and discussed the management with Dr. Gutiérrez. I agree with the History, Examination, Assessment and Plan documented above with any addition or exceptions noted below.
[2019-11-08] MEDS: Carvedilol 25 MG TAB PO SCH ×2 (08:43→16:52)
[2019-11-08] MEDS: Ferrous Sulfate 325 MG TAB PO SCH (08:43)
[2019-11-08] MEDS: Lisinopril 5 MG TAB PO SCH (08:44)
[2019-11-08] MEDS: Digoxin 0.125 MG TAB PO SCH (08:44)
[2019-11-08] MEDS: Aspirin 81 mg Enteric Coated Tablet PO SCH (08:44)
[2019-11-08] MEDS: Torsemide 20 MG TAB PO SCH (08:45)
[2019-11-08] MEDS ORDERED: predniSONE 20 MG TAB PO SCH ×2 (09:00→16:45)
[2019-11-08] MEDS ORDERED: Azithromycin 250 MG TAB PO SCH (09:00)
[2019-11-08] MEDS ORDERED: cefTRIAXone\\ROCEPHIN 1 GM in Sodium Chloride 0.9% 100 ML IVPB SCH (18:00)
--- NOTE | 2019-11-09 05:38 | PDOC.FM ---
- Subjective Subjective: Doing well this morning, no acute events overnight. Very pleasant and conversational. States SOB is much improved. Cough improved with cough meds. Ambulated yesterday in halls. Tolerating PO intake well without n/v. Voiding and stooling normally. Denies any fever/chills/cp/abd pain. Daughter is primary caregiver, has support at home. She is very eager for discharge this AM. - Objective MAR Reviewed: Yes Vital Signs & Weight: Vital Signs (12 hours) Temp Pulse Resp BP Pulse Ox 11/09/19 04:50 97.5 F L 80 16 155/82 H 92 L 11/09/19 00:25 61 14 90 L 11/09/19 00:03 97.6 F 80 16 155/80 H 93 L 11/08/19 20:43 97.8 F 66 16 149/70 H 92 L 11/08/19 20:14 68 16 92 L Weight Admit Weight 64.682 kg Weight 64.682 kg I&O: 11/07/19 11/08/19 11/09/19 06:59 06:59 06:59 Intake Total 738 Output Total 400 Balance 338 Result Diagrams: 11/09/19 05:26 11/09/19 05:26 Phys Exam - Physical Examination Constitutional: NAD (resting comfortably, pleasant, in good spirits. well- appearing) HEENT: moist MMs Neck: supple Respiratory: no wheezing, no rales, no rhonchi, clear to auscultation bilateral Cardiovascular: no significant murmur, no rub Irreguarrally irregular rate but NR Gastrointestinal: soft, non-tender, no distention, positive bowel sounds Musculoskeletal: no edema, pulses present Neurological: non-focal, moves all 4 limbs Psychiatric: normal affect, A&O x 3 Dx/Plan (1) Bronchitis Code(s): J40 - BRONCHITIS, NOT SPECIFIED ACUTE OR CHRONIC Status: Acute (2) SIRS (systemic inflammatory response syndrome) Code(s): R65.10 - SIRS OF NON-INFECTIOUS ORIGIN W/O ACUTE ORGAN DYSFUNCTION Status: Resolved (3) Atrial fibrillation Code(s): I48.91 - UNSPECIFIED ATRIAL FIBRILLATION Status: Chronic Qualifiers: Atrial fibrillation type: persistent (4) COPD (chronic obstructive pulmonary disease) Status: Chronic Qualifiers: COPD type: unspecified COPD Qualified Code(s): J44.9 - Chronic obstructive pulmonary disease, unspecified - Plan Plan: 89yo F with h/o COPD, afib with pacer, CHF presents with cough and SIRS 2/2 suspected bronchitis #SIRS 2/2 Suspected PNA vs. viral bronchitis, resolved - Pt presented w/ cough lasting for over a week now. - CXR neg & Lung exam not impressive. UA negative BCx NGTD. Pt met SIRS criteria on admission 2/2 leukocytosis and tachycardia. - Started tx w/ azithromycin and ceftriaxone but procal low at 0.12 suggesting most likely etiology is viral. Flu swab negative. VSS, exam unremarkable - 2/2 underlying COPD will cont azithro for atypical coverage and PO abx - Continue symptomatic management w/ duonebs, antitussives & antipyretics. Overall improving. #Moderate volume depletion, improving - S/p fluid hydration. Encourage PO intake, Dietitian consult and consider nutritional supplementation. #Elevated troponin - Troponin elevated on admission but trended down over course of hospital stay. - No need for continued telemetry monitoring as a fib is controlled with pacer. - Likely 2/2 acute illness and h/o CHF and Afib #A-fib, chronic w/ pacer - Continue home meds. Monitor #HFpEF (55-60% from Aug) - BNP 300 on admission, euvolumeic on exam. On review, BNPs higher in past. - HH diet, strict I's and O's, cont home meds. Monitor. #COPD - Does not appear to be in acute exacerbation. - Continue home meds & BRI Duonebs. Monitor resp status, VSS on RA. #Iron Deficiency Anemia - Hgb 12.8 -> 10. Stable at baseline. Downtrend likely 2/2 dilutional after IVFs. VSS, No s/s of acute blood loss or sx anemia. Cont home meds and monitor. #Hypothyroidism - Continue home meds. #Anxiety - Continue home meds. #h/o Gastric ulcer - continue home meds #HTN - On lisinopril at home, BP elevated during hospitalization. Consider increased dose to 10mg daily and will need OP f/u. Code: DNR Fluids: SL VTE ppx: SCDs GI ppx: already on PPI for ulcer PCP: SAAD Mckenzie Dispo: Clinically improving. VSS. Cont abx and steroids. Anticipate discharge today pending clinical course.. Addendum - Attending - Attending Attestation Date/Time: 11/09/19 9102 I personally evaluated the patient and discussed the management with Dr. Davis. I agree with the History, Examination, Assessment and Plan documented above with any addition or exceptions noted below. Patient doing well. She likely has viral bronchitis with COPD flare. She is now off O2 therapy and feels well. Will monitor O2 status today and encourage ambulation. She is off antibiotics. Monitor through the day and if continues to do well, possible discharge later today. Monitor BP as may need escalation of therapy.
[2019-11-09 06:00] LABS: #Monocytes 0.6 thou/uL (0.11-0.59); #Neutrophils 5.7 thou/uL (1.40-6.50); %Basophils 0.5 % (0.0-1.0); %Eosinophils 0.3 % (0.0-10.0); %Lymphocytes 13.1 % (21.0-51.0); %Monocytes 7.5 % (0.0-10.0); %Neutrophils 78.6 % (42.0-75.0); Hemoglobin 10.8 g/dL (12.0-16.0); Mean Corpuscular Volume 77.5 fL (78.0-98.0); Mean Platelet Volume 10.1 fL (7.4-10.4); Platelet Count 213 thou/uL (130-400); RBC Distribution Width 18.9 % (11.5-14.5); White Blood Cell (WBC) Count 7.3 thou/uL (4.8-10.8)
[2019-11-09] MEDS: Levothyroxine Sodium 50 MCG TAB PO SCH (06:02)
[2019-11-09 06:27] LABS: Anion Gap 13 mmol/L (10-20); BUN (Urea Nitrogen) 9 mg/dL (9.8-20.1); Calc. Creatinine Clearance 55 mL/min (70-130); Calcium 8.8 mg/dL (7.8-10.44); Carbon Dioxide 24 mmol/L (23-31); Chloride 105 mmol/L (98-107); Estimated GFR-MDRD 76; Glucose 136 mg/dL (83-110); Potassium 4.1 mmol/L (3.5-5.1); Sodium 138 mmol/L (136-145)
[2019-11-09 07:34] VITALS: BP 161/83; TEMP 97.8
[2019-11-09] MEDS: Digoxin 0.125 MG TAB PO SCH (07:52)
[2019-11-09] MEDS: Ferrous Sulfate 325 MG TAB PO SCH (07:53)
[2019-11-09] MEDS: Aspirin 81 mg Enteric Coated Tablet PO SCH (07:54)
[2019-11-09] MEDS: Lisinopril 5 MG TAB PO SCH (07:54)
[2019-11-09] MEDS: Carvedilol 25 MG TAB PO SCH (07:55)
[2019-11-09] MEDS ORDERED: predniSONE 20 MG TAB PO SCH (08:00)
[2019-11-09] MEDS ORDERED: Lisinopril 10 MG TAB PO SCH (09:00)
[2019-11-09] MEDS ORDERED: Azithromycin 250 MG TAB PO SCH (09:00)
[2019-11-09] MEDS: Torsemide 20 MG TAB PO SCH (11:16)
--- NOTE | 2019-11-09 12:47 | DIS ---
DATE OF ADMISSION: 11/07/2019 DATE OF DISCHARGE: 11/09/2019 RESIDENT: Roger Davis MD. ADMITTING ATTENDING: Naveen Tavares MD. DISCHARGE ATTENDING: Boris Tellez MD. CONSULTS: None. PROCEDURES: Chest x-ray on 11/07/2019, demonstrating atherosclerosis, chronic changes, cardiomegaly, no acute cardiopulmonary process. PRIMARY DIAGNOSES: 1. SIRS secondary to suspected of viral bronchitis. 2. Moderate volume depletion, resolved. SECONDARY DIAGNOSES: 1. Elevated troponin, resolved. 2. Chronic atrial fibrillation with pacer. 3. Heart failure with preserved ejection fraction. 4. Chronic obstructive pulmonary disease. 5. Iron deficiency anemia. 6. Hypothyroidism. 7. Anxiety. 8. History of gastric ulcer. 9. Hypertension. DISCHARGE MEDICATIONS: 1. Lexapro 10 mg p.o. daily. 2. Levothyroxine 50 mcg p.o. daily. 3. Potassium chloride 20 mEq p.o. b.i.d. 4. Atorvastatin 80 mg p.o. at bedtime. 5. Torsemide 20 mg p.o. daily. 6. Coreg 25 mg p.o. b.i.d. 7. Digoxin 0.125 mg p.o. daily. 8. Cholecalciferol 1000 units p.o. at bedtime. 9. [place]-3 one capsule p.o. daily. 10. Calcium carbonate/vitamin-D supplementation one tablet p.o. daily. 11. Protonix 40 mg p.o. b.i.d. 12. Aspirin 81 mg p.o. daily. 13. Iron 325 mg one-half tablet every other day. 14. Azithromycin 250 mg p.o. daily x3 days. 15. Guaifenesin DM 15 mL p.o. q.4 hours p.r.n. cough. 16. Lisinopril 10 mg p.o. daily. 17. Prednisone 40 mg p.o. q.a.m. x3 days. Discontinued medications; 1. Lisinopril 5 mg p.o. daily. HISTORY OF PRESENT ILLNESS AND HOSPITAL COURSE: The patient is an 89-year-old female with history of COPD, who presented to the ER for productive cough and worsening shortness of breath. She said that she went to her primary care provider last week with cough and was advised to take [id number] antacids and these did not help. The cough is productive of a yellow green sputum. She has no chest pain. Her daughter reports decreased appetite, decreased fluid intake. Daughter also reports that she was having some delirium with visual hallucinations, which is typical for when the patient becomes sick. In the ED, she met SIRS criteria with an elevated white count of 20 and tachycardia. She was given 1 L normal saline bolus, dose of azithromycin and Rocephin, and was admitted for further evaluation and management. On the floor, she was saturating well on room air. Chest x-ray was reviewed that showed no acute cardiopulmonary process. No focal pneumonia. She was given a dose of steroids, which was continued for 5 day course at time of discharge. It was also determined that the most likely etiology was a bronchitis, viral versus bacterial; however, due to the patient's underlying COPD, it was determined to treat with a course of azithromycin, which was continued upon discharge. Throughout the hospitalization, the patient's O2 saturation remained stable and she was not tachypneic. She was able to ambulate well at the time of discharge and was at her baseline. A procalcitonin was obtained that was 0.12. She was given DuoNeb treatments throughout her hospitalization, but at the time of discharge had a lung exam that was quite normal. Flu swab was negative. The patient also presented with moderate volume depletion. She was status post fluid hydration and encouraged p.o. intake. She initially did well with this. Labs were trended. Her electrolytes and kidney function were within normal limits. She also had a slight elevation of troponin at 0.172, this trended down to 0.14 and 0.12. Chronic elevation of troponin could be due from her chronic atrial fibrillation. White count was trended and decreased to 7.3 by the time of discharge. Regarding the patient's chronic medical conditions, they were managed with her home medications without any acute exacerbations. It was noted that the patient had elevated blood pressures ranging from [address] to [address] to the 180 to 190 systolic. This was determined that the patient could have an increased dose of her lisinopril from 5 mg to 10 mg daily. This was given in the hospital. She will need continued titration of her blood pressure medications as an outpatient. At the time of discharge, the patient was tolerating p.o. well, voiding and stooling normally. She was ambulating throughout the mena without difficulty and appeared to be at her baseline. Discharge plan was discussed with patient at bedside, was given understanding of discharge plan to continue and finish out her course of antibiotics and steroids and have appropriate followup. All questions were answered appropriately. DISPOSITION: Stable. DISCHARGE INSTRUCTIONS: 1. Location: Home. 2. Diet: Heart-healthy, low-sodium. 3. Activity as tolerated. 4. Followup: The patient to followup with her primary care physician within 1 week of discharge. Job ID: [id number]
--- NOTE | 2019-11-09 14:00 | EKG ---
Test Reason : TACHY Blood Pressure : / mmHG Vent. Rate : 107 BPM Atrial Rate : 120 BPM P-R Int : 000 ms QRS Dur : 088 ms QT Int : 350 ms P-R-T Axes : 000 131 257 degrees QTc Int : 467 ms Atrial fibrillation with rapid ventricular response Indeterminate axis Abnormal ECG Old T wave inversions V4-V6, II, III, aVF compared to 10/06/2019 Confirmed by ISABELA BURNHAM DO ([id number]), news videotape editor VEL QUINN ([id number]) on 11/09/2019 1:59:48 PM Referred By: REY BURNHAM Confirmed By:ISABELA BURNHAM DO
--- NOTE | 2019-11-12 05:41 | PQF ---
MARIA M CALDERON JASON MD *r* [id number] [id number] CLINICAL DOCUMENTATION CLARIFICATION FORM: POST DISCHARGE Addendum to original discharge summary date: ____ Late entry note date: __ DATE: 11/12/2019 ATTN:BORIS JUÁREZ MD Please exercise your independent, professional judgment in responding to the clarification form. Clinical indicators are provided on the bottom of this form for your review Please check appropriate box(s) to clarify if the following diagnosis has been ruled in or ruled out: SEPSIS [ X] Ruled in diagnosis [ ] Continue to treat [ X] Resolved [ ] Ruled out diagnosis [ ] Cannot rule out diagnosis [ ] Other diagnosis [ ] Unable to determine For continuity of documentation, please document condition throughout progress notes and discharge summary. Thank You. CLINICAL INDICATORS - SIGNS / SYMPTOMS / LABS -Sepsis- ED record, 11/07, Oliver Lopez DO -SIRS secondary to suspected of viral bronchitis-DS, 11/09, BORIS JUÁREZ MD -Afebrile, Pulse tachycardia, mildly tachypneic-Pulse:108, RR:30, Temp:98.7- ED record, 11/07, Oliver Lopez DO -WBC: 20.0H- 11/07, Laboratory report RISK FACTORS - Viral bronchitis- DS, 11/09, Boris Juárez MD TREATMENTS - Azithromycin.IV-DS, 11/09, Boris Juárez MD - Rocephin.IV- MAR, 11/07 to 11/09 (This form is maintained as a part of the permanent medical record) 2014 [employer]. All Rights Reserved [employer] [not provided] [not provided] MTDD
== END 2019-11-09 11:25 | disposition home or self-care (01) | DRG 872 ==
LOC: ERS 18:06 → 2NO 20:28 → T4-B 11-08 12:33
PROVIDERS: ADMIT Family Medicine; ATTEND Family Medicine
DX: A41.89 Other specified sepsis (principal); I48.20 Chronic atrial fibrillation, unspecified; I50.32 Chronic diastolic (congestive) heart failure; I13.0 Hypertensive heart and chronic kidney disease with heart failure and stage 1 through stage 4 chronic kidney disease, or unspecified chronic kidney disease; J20.8 Acute bronchitis due to other specified organisms; Z66 Do not resuscitate; D50.9 Iron deficiency anemia, unspecified; E03.9 Hypothyroidism, unspecified; F41.9 Anxiety disorder, unspecified; J44.9 Chronic obstructive pulmonary disease, unspecified; N18.2 Chronic kidney disease, stage 2 (mild); E86.9 Volume depletion, unspecified; R79.89 Other specified abnormal findings of blood chemistry; Z95.0 Presence of cardiac pacemaker; Z79.01 Long term (current) use of anticoagulants; Z87.11 Personal history of peptic ulcer disease; Z90.710 Acquired absence of both cervix and uterus
CPT/HCPCS: 36415; 71045; 80048; 80053; 81003; 81015; 83605; 83880; 84145; 84484; 85025; 87040; 87804; 93005; 94640; 96361; 96365; 96367; J0456; J0696; J7512; J7620

== ENCOUNTER 2020-06-29 01:52 | Emergency (ER) | payer MEDICARE ==
[2020-06-29] MEDS ORDERED: Acetaminophen 500 MG TAB ONE (03:27)
--- NOTE | 2020-06-29 08:08 | RAD ---
XR Chest 1 View Portable HISTORY: Hypertension COMPARISON: 11/07/2019 FINDINGS: The heart is enlarged. 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 Chronic changes in the lung parenchyma are again noted. No lobar consolidation, pneumothoraces, rigoberto pulmonary edema pleural effusions are seen. IMPRESSION: No radiographic evidence of acute cardiopulmonary process.
== END 2020-06-29 04:08 | disposition home or self-care (01) ==
LOC: ERS 01:52
DX: I13.0 Hypertensive heart and chronic kidney disease with heart failure and stage 1 through stage 4 chronic kidney disease, or unspecified chronic kidney disease (principal); I50.9 Heart failure, unspecified; N18.2 Chronic kidney disease, stage 2 (mild); E11.22 Type 2 diabetes mellitus with diabetic chronic kidney disease; I48.91 Unspecified atrial fibrillation; J44.9 Chronic obstructive pulmonary disease, unspecified; E03.9 Hypothyroidism, unspecified; E78.5 Hyperlipidemia, unspecified; F41.9 Anxiety disorder, unspecified; F32.9 Major depressive disorder, single episode, unspecified; Z87.891 Personal history of nicotine dependence
CPT/HCPCS: 71045

== ENCOUNTER 2020-10-17 18:49 | Emergency (ER) | payer MEDICARE ==
--- NOTE | 2020-10-17 19:27 | RAD ---
RADIOGRAPH CHEST 1 VIEW: DATE: 10/17/2020 TIME: 7:19 PM HISTORY: 89-year-old female with paresthesias and left chest pain COMPARISON: 06/29/2020 FINDINGS: Cardiomegaly. Diffusely prominent interstitial markings, especially at the lower lung zones. This appears slightly worse now than before. This apparent difference may or may not be technical. No cardiomegaly or pneumothorax. No consolidation. Single lead pacemaker with left-sided generator.. IMPRESSION: 1) cardiomegaly 2) prominent interstitial markings. 3) prominent pacemaker
[2020-10-17] MEDS ORDERED: Labetalol HCl 100 MG/20 ML VIAL ONE (19:38)
[2020-10-17 19:46] LABS: #Eosinphils 0.1 thou/uL (0.0-0.7); #Lymphocytes 2.7 thou/uL (1.20-3.40); #Neutrophils 5.7 thou/uL (1.40-6.50); %Basophils 0.2 % (0.0-1.0); %Eosinophils 1.3 % (0.0-10.0); %Monocytes 10.8 % (0.0-10.0); %Neutrophils 59.7 % (42.0-75.0); Hemoglobin 14.7 g/dL (12.0-16.0); Mean Corpuscular HGB CONC 32.5 g/dL (32.0-36.0); Mean Corpuscular Hemoglobin 28.6 pg (27.0-31.0); Mean Corpuscular Volume 88.1 fL (78.0-98.0); Mean Platelet Volume 9.3 fL (7.4-10.4); Platelet Count 156 thou/uL (130-400); RBC Distribution Width 13.9 % (11.5-14.5); Red Blood Cell (RBC) Count 5.12 mill/uL (4.20-5.40); White Blood Cell (WBC) Count 9.6 thou/uL (4.8-10.8)
[2020-10-17 20:08] LABS: ALT (SGPT) 21 U/L (8-55); AST (SGOT) 29 U/L (5-34); Alkaline Phosphatase 115 U/L (40-110); Anion Gap 16 mmol/L (10-20); BUN (Urea Nitrogen) 18 mg/dL (9.8-20.1); Bilirubin, Total 0.4 mg/dL (0.2-1.2); CK (CPK) 53 U/L (29-168); Calc. Creatinine Clearance 0 mL/min (70-130); Calcium 8.8 mg/dL (7.8-10.44); Carbon Dioxide 27 mmol/L (23-31); Chloride 105 mmol/L (98-107); Globulin 3.3 g/dL (2.4-3.5); Glucose 123 mg/dL (83-110); Lipase 35 U/L (8-78); Potassium 3.8 mmol/L (3.5-5.1); Protein, Total 7.3 g/dL (6.0-8.3); Sodium 144 mmol/L (136-145)
[2020-10-17 20:28] LABS: CKMB 1.6 ng/mL (0-6.6)
== END 2020-10-17 20:56 | disposition home or self-care (01) ==
LOC: ERS 18:49
DX: I13.0 Hypertensive heart and chronic kidney disease with heart failure and stage 1 through stage 4 chronic kidney disease, or unspecified chronic kidney disease (principal); E11.22 Type 2 diabetes mellitus with diabetic chronic kidney disease; N18.2 Chronic kidney disease, stage 2 (mild); I50.9 Heart failure, unspecified; I48.91 Unspecified atrial fibrillation; J44.9 Chronic obstructive pulmonary disease, unspecified; E03.9 Hypothyroidism, unspecified; E78.5 Hyperlipidemia, unspecified; Z87.891 Personal history of nicotine dependence; Z79.899 Other long term (current) drug therapy
CPT/HCPCS: 36415; 71045; 80053; 82550; 82553; 83690; 84484; 85025; 93005; 96374; 96376